=== PATIENT | male | born 1950 | race Caucasian/White ===

== ENCOUNTER 2017-07-30 23:22 | Emergency (ER) | payer MEDICARE ==
--- NOTE | 2017-07-30 23:54 | EDM.PDOC ---
ED HPI GENERAL MEDICAL PROBLEM - General Chief Complaint: General Stated Complaint: LUMP IN CHEST FEELING [id number] Time Seen by Provider: 07/30/17 23:30 Source of Information: Reports: Patient, Family History Limitations: Reports: No Limitations - History of Present Illness INITIAL COMMENTS - FREE TEXT/NARRATIVE: ED ambulatory with c/o lump in chest similar if something caught after eating. Noted prior to eating supper. Worse when lying flat. Has had recent URI, breathing heavier tonight. Fever today. notes not belching tonight. Prior hx kdney and bladder cancer, Undergoing BCG treatments, next due tomorrow, # treatments remaining. Prior hx blood clots after prostate surgery. Has had 2 episodes of atrial fibrillation associated with illness. Spontaneous conversion. Emesis x 1 tonight. Onset: Today, Sudden (5pm) Location: Reports: Chest Treatments ASSOCIATE EDITOR: Reports: Other (see below) Other Treatments ASSOCIATE EDITOR: nebulizer treatment Epigastric Pain Score (Numeric/FACES): 2 - Related Data Allergies Allergy/AdvReac Type Severity Reaction Status Date / Time Yqckyat-Jdv-Kon Reductase Allergy Muscle Verified 07/30/17 23:26 Inhibitor Aches colchicine Allergy Cannot Uncoded 07/30/17 23:26 Remember Home Meds: Home Meds Albuterol/Ipratropium [Combivent] 14.7 gm INH Q8HR PRN 06/28/14 [History] Allopurinol [Allopurinol] 300 mg PO DAILY 06/28/14 [History] Lisinopril [Prinivil] 10 mg PO DAILY 06/28/14 [History] atorvaSTATin [Lipitor] 10 mg PO BEDTIME 06/28/14 [History] Albuterol/Ipratropium [DuoNeb 3-0.5 MG/3 ML] 3 ml INH ASDIRECTED PRN 07/19/14 [ History] Hydrochlorothiazide [Hydrochlorothiazide] 25 mg PO DAILY 10/11/15 [History] metFORMIN [Glucophage] 750 mg PO BID 10/11/15 [History] Furosemide [Lasix] 40 mg PO DAILY 10/28/15 [History] Metoprolol Tartrate 100 mg PO BID 10/28/15 [History] Nitrofurantoin Macrocrystal [Nitrofurantoin] 100 mg PO BID 07/30/17 [History] Past Medical History HEENT History: Reports: Impaired Vision Other HEENT History: tonsillectomy and polops removed from nares bilterally Cardiovascular History: Reports: Arrhythmia, Blood Clots/VTE/DVT, High Cholesterol, Hypertension Respiratory History: Reports: Bronchitis, Recurrent, Pneumonia, Recurrent, Other (See Below) Other Respiratory History: uses home nebulizer prn Gastrointestinal History: Reports: Hemorrhoids Genitourinary History: Reports: Prostate Disorder, Renal Calculus, Other (See Below) Other Genitourinary History: self caths self every other day due previous surgeries Musculoskeletal History: Reports: Gout Neurological History: Reports: None Endocrine/Metabolic History: Reports: Diabetes, Type II, Obesity/BMI 30+ Oncologic (Cancer) History: Reports: Other (See Below) Other Oncologic History: bladder cancer - Infectious Disease History Infectious Disease History: Reports: Chicken Pox, Measles - Past Surgical History Male Surgical History: Reports: Lithotripsy (ESWL), TURP-Transurethral Resection of Prostate Neurological Surgical History: Reports: None Musculoskeletal Surgical History: Reports: None Social & Family History - Family History Cardiac: Reports: Hypertension, [place], Stent, Other (See Below) Other Cardiac Family History: sister had cabg Respiratory: Reports: COPD Neurological: Reports: CVA Endocrine/Metabolic: Reports: Diabetes, type II Oncologic: Reports: Lung Other Oncologic Family History: sister had lung ca - Tobacco Use Smoking Status *Q: Never Smoker Second Hand Smoke Exposure: No - Caffeine Use Caffeine Use: Reports: None - Alcohol Use Days Per Week of Alcohol Use: 0 (rare) - Recreational Drug Use Recreational Drug Use: No Drug Use in Last 12 Months: No - Living Situation & Occupation Living situation: Reports: , with Family Occupation: Retired ED ROS GENERAL - Review of Systems Review Of Systems: See Below Constitutional: Reports: Fever HEENT: Reports: No Symptoms Respiratory: Reports: Shortness of Breath, Wheezing Cardiovascular: Reports: Orthopnea, Other ("lump in chest") GI/Abdominal: Reports: Difficulty Swallowing (when eats to fast), Vomiting : Reports: Other (bladder cancer) Skin: Reports: No Symptoms Neurological: Reports: No Symptoms ED EXAM, GENERAL - Physical Exam Exam: See Below Exam Limited By: No Limitations General Appearance: Alert, Obese Eye Exam: Bilateral Eye: EOMI Ears: Normal External Exam, Normal TMs Nose: Normal Inspection Throat/Mouth: Normal Inspection Head: Atraumatic, Normocephalic Neck: Normal Inspection Respiratory/Chest: Decreased Breath Sounds. No: Rhonchi, Wheezing Cardiovascular: Normal Peripheral Pulses, Regular Rate, Rhythm GI/Abdominal: Normal Bowel Sounds, Soft, Other (round) Extremities: Normal Inspection Neurological: Alert, Oriented, Normal Cognition Skin Exam: Warm, Dry, Intact, Other (face flushed) Course - Vital Signs Last Recorded V/S: Last Vital Signs Temp 98.2 F 07/31/17 02:12 Pulse 78 07/31/17 01:25 Resp 22 H 07/31/17 02:12 BP 145/77 H 07/31/17 02:12 Pulse Ox 98 07/31/17 02:12 - Orders/Labs/Meds Labs: Laboratory Tests 07/30/17 07/30/17 07/30/17 Range/Units 23:40 23:45 23:45 WBC 12.7 H (5.0-10.0) 10^3/uL RBC 4.99 (4.6-6.2) 10^6/uL Hgb 15.6 (14.0-18.0) g/dL Hct 44.3 (40.0-54.0) % MCV 88.8 D (80-100) fL MCH 31.3 (27.0-34.0) pg MCHC 35.2 H (33.0-35.0) g/dL Plt Count 174 (150-450) 10^3/uL Neut % (Auto) 74.1 (42.2-75.2) % Lymph % (Auto) 14.4 L (20.5-50.1) % [place] % (Auto) 10.2 H (2-8) % Eos % (Auto) 0.9 L (1.0-3.0) % Baso % (Auto) 0.4 (0.0-1.0) % Add Manual Diff Yes Neutrophils % (Manual) 73 (42-75) % Lymphocytes % (Manual) 14 L (20-50) % Monocytes % (Manual) 12 H (2-8) % Eosinophils % (Manual) 1 (1-3) % PT (9.0-12.0) SEC INR (0.9-1.2) D-Dimer, Quantitative 1340 H (0-400) ng/mL Sodium (135-145) mmol/L Potassium (3.6-5.0) mmol/L Chloride (101-111) mmol/L Carbon Dioxide (21.0-31.0) mmol/L Anion Gap BUN (7-18) mg/dL Creatinine (0.6-1.3) mg/dL Est Cr Clr Drug Dosing Estimated GFR (MDRD) BUN/Creatinine Ratio Glucose (74-105) mg/dL Lactic Acid 2.1 (0.5-2.2) mmol/L Calcium (8.4-10.2) mg/dl Total Bilirubin (0.2-1.0) mg/dL AST (10-42) IU/L ALT (10-60) IU/L Alkaline Phosphatase (42-121) IU/L Creatine Kinase (26-174) IU/L Creatine Kinase Index (0-2.4) % CK-MB (CK-2) (0.4-4.7) ng/mL Troponin I (0.00-0.02) ng/ml B-Natriuretic Peptide (0-100) pg/ml Total Protein (6.7-8.2) g/dl Albumin (3.2-5.5) g/dl Globulin Albumin/Globulin Ratio Amylase (28-100) U/L Lipase (22-51) U/L Urine Color (YELLOW) Urine Appearance (CLEAR) Urine pH (5.0-9.0) Ur Specific [place] (1.005-1.030) Urine Protein (NEGATIVE) Urine Glucose (UA) (NEGATIVE) Urine Ketones (NEGATIVE) Urine Occult Blood (NEGATIVE) Urine Nitrite (NEGATIVE) Urine Bilirubin (NEGATIVE) Urine Urobilinogen (0.2-1.0) mg/dL Ur Leukocyte Esterase (NEGATIVE) Urine RBC /HPF Urine WBC (0-5/HPF) /HPF Ur Epithelial Cells /HPF Urine Bacteria (0-FEW/HPF) /HPF Urine Mucus /LPF 07/30/17 07/30/17 07/30/17 Range/Units 23:45 23:45 23:45 WBC (5.0-10.0) 10^3/uL RBC (4.6-6.2) 10^6/uL Hgb (14.0-18.0) g/dL Hct (40.0-54.0) % MCV (80-100) fL MCH (27.0-34.0) pg MCHC (33.0-35.0) g/dL Plt Count (150-450) 10^3/uL Neut % (Auto) (42.2-75.2) % Lymph % (Auto) (20.5-50.1) % [place] % (Auto) (2-8) % Eos % (Auto) (1.0-3.0) % Baso % (Auto) (0.0-1.0) % Add Manual Diff Neutrophils % (Manual) (42-75) % Lymphocytes % (Manual) (20-50) % Monocytes % (Manual) (2-8) % Eosinophils % (Manual) (1-3) % PT 11.2 (9.0-12.0) SEC INR 1.1 (0.9-1.2) D-Dimer, Quantitative (0-400) ng/mL Sodium 137 (135-145) mmol/L Potassium 4.0 (3.6-5.0) mmol/L Chloride 97 L (101-111) mmol/L Carbon Dioxide 29.0 (21.0-31.0) mmol/L Anion Gap 15.0 BUN 18 (7-18) mg/dL Creatinine 1.1 (0.6-1.3) mg/dL Est Cr Clr Drug Dosing TNP Estimated GFR (MDRD) > 60 BUN/Creatinine Ratio 16.36 Glucose 157 H (74-105) mg/dL Lactic Acid (0.5-2.2) mmol/L Calcium 9.7 (8.4-10.2) mg/dl Total Bilirubin 0.8 (0.2-1.0) mg/dL AST 29 (10-42) IU/L ALT 26 (10-60) IU/L Alkaline Phosphatase 58 (42-121) IU/L Creatine Kinase 102 (26-174) IU/L Creatine Kinase Index 2.7 H (0-2.4) % CK-MB (CK-2) 2.80 (0.4-4.7) ng/mL Troponin I < 0.02 (0.00-0.02) ng/ml B-Natriuretic Peptide (0-100) pg/ml Total Protein 7.1 (6.7-8.2) g/dl Albumin 3.9 (3.2-5.5) g/dl Globulin 3.2 Albumin/Globulin Ratio 1.22 Amylase (28-100) U/L Lipase (22-51) U/L Urine Color (YELLOW) Urine Appearance (CLEAR) Urine pH (5.0-9.0) Ur Specific [place] (1.005-1.030) Urine Protein (NEGATIVE) Urine Glucose (UA) (NEGATIVE) Urine Ketones (NEGATIVE) Urine Occult Blood (NEGATIVE) Urine Nitrite (NEGATIVE) Urine Bilirubin (NEGATIVE) Urine Urobilinogen (0.2-1.0) mg/dL Ur Leukocyte Esterase (NEGATIVE) Urine RBC /HPF Urine WBC (0-5/HPF) /HPF Ur Epithelial Cells /HPF Urine Bacteria (0-FEW/HPF) /HPF Urine Mucus /LPF 07/30/17 07/30/17 07/31/17 Range/Units 23:45 23:45 01:05 WBC (5.0-10.0) 10^3/uL RBC (4.6-6.2) 10^6/uL Hgb (14.0-18.0) g/dL Hct (40.0-54.0) % MCV (80-100) fL MCH (27.0-34.0) pg MCHC (33.0-35.0) g/dL Plt Count (150-450) 10^3/uL Neut % (Auto) (42.2-75.2) % Lymph % (Auto) (20.5-50.1) % [place] % (Auto) (2-8) % Eos % (Auto) (1.0-3.0) % Baso % (Auto) (0.0-1.0) % Add Manual Diff Neutrophils % (Manual) (42-75) % Lymphocytes % (Manual) (20-50) % Monocytes % (Manual) (2-8) % Eosinophils % (Manual) (1-3) % PT (9.0-12.0) SEC INR (0.9-1.2) D-Dimer, Quantitative (0-400) ng/mL Sodium (135-145) mmol/L Potassium (3.6-5.0) mmol/L Chloride (101-111) mmol/L Carbon Dioxide (21.0-31.0) mmol/L Anion Gap BUN (7-18) mg/dL Creatinine (0.6-1.3) mg/dL Est Cr Clr Drug Dosing Estimated GFR (MDRD) BUN/Creatinine Ratio Glucose (74-105) mg/dL Lactic Acid (0.5-2.2) mmol/L Calcium (8.4-10.2) mg/dl Total Bilirubin (0.2-1.0) mg/dL AST (10-42) IU/L ALT (10-60) IU/L Alkaline Phosphatase (42-121) IU/L Creatine Kinase (26-174) IU/L Creatine Kinase Index (0-2.4) % CK-MB (CK-2) (0.4-4.7) ng/mL Troponin I (0.00-0.02) ng/ml B-Natriuretic Peptide 47 (0-100) pg/ml Total Protein (6.7-8.2) g/dl Albumin (3.2-5.5) g/dl Globulin Albumin/Globulin Ratio Amylase 30 (28-100) U/L Lipase 44 (22-51) U/L Urine Color Yellow (YELLOW) Urine Appearance Slightly cloudy (CLEAR) Urine pH 6.0 (5.0-9.0) Ur Specific [place] 1.020 (1.005-1.030) Urine Protein 30 H (NEGATIVE) Urine Glucose (UA) Negative (NEGATIVE) Urine Ketones Negative (NEGATIVE) Urine Occult Blood Trace-intact H (NEGATIVE) Urine Nitrite Negative (NEGATIVE) Urine Bilirubin Negative (NEGATIVE) Urine Urobilinogen 0.2 (0.2-1.0) mg/dL Ur Leukocyte Esterase Trace H (NEGATIVE) Urine RBC 0-5 /HPF Urine WBC 50-75 H (0-5/HPF) /HPF Ur Epithelial Cells Few /HPF Urine Bacteria Few (0-FEW/HPF) /HPF Urine Mucus Few H /LPF Meds: Medications Discontinued Medications Generic Name Dose Route Start Last Admin Trade Name Freq PRN Reason Stop Dose Admin Al Hydroxide/Mg Hydroxide 30 ml 07/31/17 01:12 07/31/17 01:21 Gi Cocktail PO 07/31/17 01:13 30 ml ONETIME ONE Administration Albuterol 2.5 mg 07/31/17 02:01 07/31/17 02:06 Proventil Neb Soln NEB 07/31/17 02:02 2.5 mg ONETIME ONE Administration Iopamidol 100 ml 07/31/17 01:22 07/31/17 01:23 Isovue-370 (76%) IVPUSH 07/31/17 01:23 80 ml ONETIME ONE Administration Nitroglycerin 0.4 mg 07/31/17 00:00 07/31/17 00:04 Nitrostat SL 07/31/17 00:01 0.4 mg ONETIME ONE Administration - Radiology Interpretation Free Text/Narrative:: CXR: Low lung volume, Right lower lobe atelectasis. No pneumo or free air. Departure - Departure Time of Disposition: 02:00 Disposition: Home, Self-Care 01 Condition: Fair Clinical Impression: Chest fullness Bladder cancer Qualifiers: Bladder location: unspecified site Qualified Code(s): C67.9 - Malignant neoplasm of bladder, unspecified - Discharge Information Forms: ED Department Discharge
[2017-07-31] MEDS ORDERED: Nitroglycerin 0.4 MG Tab.SL SL ONE
[2017-07-31 00:11] LABS: CHLORIDE,CL 97 mmol/L (101-111); SODIUM,NA 137 mmol/L (135-145)
[2017-07-31] MEDS ORDERED: GI Cocktail Oral Solution 30 ML PO ONE (01:12)
[2017-07-31] MEDS ORDERED: Iopamidol 755 Mg/ML 100 ML Bottle IVPUSH ONE (01:22)
[2017-07-31] MEDS ORDERED: Albuterol 0.083% 2.5 MG/3 ML Neb Soln NEB ONE (02:01)
[2017-07-31 02:13] VITALS: BP 145/77
--- NOTE | 2017-08-01 08:37 | EKG ---
07/30/2017- JIM DUVAL - EKG per my reading shows sinus rhythm at the rate of 79. No acute ST changes. MODL /[id number]
== END 2017-07-31 02:26 | disposition home or self-care (01) ==
LOC: DL.ED 23:22
DX: J98.11 Atelectasis (principal); C67.9 Malignant neoplasm of bladder, unspecified; E78.00 Pure hypercholesterolemia, unspecified; I10 Essential (primary) hypertension; E11.9 Type 2 diabetes mellitus without complications; R06.2 Wheezing; R06.02 Shortness of breath; E66.9 Obesity, unspecified; Z88.8 Allergy status to other drugs, medicaments and biological substances; Z87.01 Personal history of pneumonia (recurrent); Z79.899 Other long term (current) drug therapy
CPT/HCPCS: 36415; 71010; 71260; 80053; 81001; 82150; 82550; 82553; 83605; 83690; 83880; 84484; 85025; 85379; 85610; 87040; 93005; 93010; 99285; A9270; J7620; Q9967; 99284

== ENCOUNTER 2018-07-21 23:54 | Emergency (ER) | payer MEDICARE ==
[2018-07-22] MEDS ORDERED: Ondansetron 4 MG/2 ML SDV IV ONE (00:08)
[2018-07-22] MEDS ORDERED: Sodium Chloride 0.9% 1,000 ML IV ONE ×2 (00:08→01:00)
[2018-07-22 00:28] VITALS: BP 131/81
[2018-07-22] MEDS ORDERED: Ibuprofen 800 MG Tab PO ONE (00:43)
--- NOTE | 2018-07-22 00:48 | EDM.PDOC ---
ED HPI GENERAL MEDICAL PROBLEM - General Chief Complaint: Gastrointestinal Problem Stated Complaint: AMBULANCE-THROWING UP Time Seen by Provider: 07/22/18 00:00 Source of Information: Reports: Patient, EMS, EMS Notes Reviewed, Family, RN, RN Notes Reviewed History Limitations: Reports: No Limitations - History of Present Illness INITIAL COMMENTS - FREE TEXT/NARRATIVE: Pt to Er per [facility] with c/o N/V and fever. States he had a port placed this morning in [place]. Patient has history of prostate and lung cancer. Last took Tylenol at home at 2200. Vomited x3 after trying to drink water. States he has had thrush and a yeast infection in the groin area. Onset: Today Treatments ENERGY ADMINISTRATOR: Reports: Acetaminophen Groin Pain Score (Numeric/FACES): 3 - Related Data Allergies Allergy/AdvReac Type Severity Reaction Status Date / Time Vprlikn-Hpr-Kvw Reductase Allergy Muscle Verified 07/22/18 00:31 Inhibitor Aches colchicine Allergy Cannot Uncoded 07/22/18 00:31 Remember Home Meds: Home Meds Albuterol/Ipratropium [Combivent] 14.7 gm INH Q8HR PRN 06/28/14 [History] Allopurinol 300 mg PO DAILY 06/28/14 [History] Lisinopril [Prinivil] 10 mg PO DAILY 06/28/14 [History] atorvaSTATin [Lipitor] 10 mg PO BEDTIME 06/28/14 [History] Albuterol/Ipratropium [DuoNeb 3-0.5 MG/3 ML] 3 ml INH ASDIRECTED PRN 07/19/14 [ History] Hydrochlorothiazide 25 mg PO DAILY 10/11/15 [History] metFORMIN [Glucophage] 750 mg PO BID 10/11/15 [History] Furosemide [Lasix] 40 mg PO DAILY 10/28/15 [History] Metoprolol Tartrate 100 mg PO BID 10/28/15 [History] Nitrofurantoin Macrocrystal [Nitrofurantoin] 100 mg PO BID 07/30/17 [History] Acetaminophen [Tylenol] 325 mg PO Q6H PRN 07/22/18 [History] Albuterol [Proventil Neb Soln] 2.5 mg .XX QID 07/22/18 [History] Aspirin [Adult Low Dose Aspirin EC] 81 mg PO DAILY 07/22/18 [History] EPINEPHrine [Auvi-Q] 0.3 mg IJ DAILY PRN 07/22/18 [History] Fluconazole [Diflucan] 200 mg PO DAILY 07/22/18 [History] Insulin Glargine,Hum.Rec.Anlog [Basaglar Kwikpen U-100] 15 unit SQ BEDTIME 07/22 [History] Lidocaine 2% [Xylocaine 2% Jelly] 07/22/18 [History] Lidocaine 2% [Xylocaine 2% Jelly] 0 ml TOP DAILY PRN 07/22/18 [History] Loratadine [Claritin] 10 mg PO DAILY 07/22/18 [History] Montelukast [Singulair] 10 mg PO DAILY PRN 07/22/18 [History] Ondansetron [Zofran ODT] 8 mg PO Q8HR PRN 07/22/18 [History] Pantoprazole Sodium 40 mg PO DAILY 07/22/18 [History] Pyridoxine HCl [Vitamin B-6] 100 mg PO DAILY 07/22/18 [History] Ranitidine [Zantac] 150 mg PO DAILY PRN 07/22/18 [History] dilTIAZem HCl [Diltiazem 24Hr ER] 300 mg PO DAILY 07/22/18 [History] diphenhydrAMINE [Benadryl] 50 mg PO DAILY PRN 07/22/18 [History] glipiZIDE [Glucotrol XL] 10 mg PO BID 07/22/18 [History] predniSONE [Prednisone] 10 mg PO PRN 07/22/18 [History] Past Medical History HEENT History: Reports: Impaired Vision Other HEENT History: tonsillectomy and polops removed from nares bilterally Cardiovascular History: Reports: Arrhythmia, Blood Clots/VTE/DVT, High Cholesterol, Hypertension Respiratory History: Reports: Bronchitis, Recurrent, Pneumonia, Recurrent, Other (See Below) Other Respiratory History: uses home nebulizer prn Gastrointestinal History: Reports: Hemorrhoids Genitourinary History: Reports: Prostate Disorder, Renal Calculus, Other (See Below) Other Genitourinary History: self caths self every other day due previous surgeries Musculoskeletal History: Reports: Gout Neurological History: Reports: None Endocrine/Metabolic History: Reports: Diabetes, Type II, Obesity/BMI 30+ Oncologic (Cancer) History: Reports: Lung, Other (See Below) Other Oncologic History: bladder cancer - Infectious Disease History Infectious Disease History: Reports: Chicken Pox, Measles - Past Surgical History Male Surgical History: Reports: Lithotripsy (ESWL), TURP-Transurethral Resection of Prostate Neurological Surgical History: Reports: None Musculoskeletal Surgical History: Reports: None Social & Family History - Family History Cardiac: Reports: Hypertension, [place], Stent, Other (See Below) Other Cardiac Family History: sister had cabg Respiratory: Reports: COPD Neurological: Reports: CVA Endocrine/Metabolic: Reports: Diabetes, type II Oncologic: Reports: Lung Other Oncologic Family History: sister had lung ca - Tobacco Use Smoking Status *Q: Never Smoker Second Hand Smoke Exposure: No - Caffeine Use Caffeine Use: Reports: Coffee, Tea - Recreational Drug Use Recreational Drug Use: No - Living Situation & Occupation Living situation: Reports: , with Family Occupation: Retired ED ROS GENERAL - Review of Systems Review Of Systems: ROS reveals no pertinent complaints other than HPI. ED EXAM, GENERAL - Physical Exam Exam: See Below Exam Limited By: No Limitations General Appearance: Alert, WD/WN, Mild Distress Eye Exam: Bilateral Eye: EOMI, Normal Inspection Ears: Normal External Exam, Hearing Grossly Normal Nose: Normal Inspection Throat/Mouth: Normal Inspection, Normal Voice, No Airway Compromise, Other (dry mouth) Head: Atraumatic, Normocephalic Neck: Normal Inspection, Supple, Non-Tender, Full Range of Motion Respiratory/Chest: No Respiratory Distress, Lungs Clear, Normal Breath Sounds, No Accessory Muscle Use, Chest Non-Tender Cardiovascular: No Edema, No Gallop, No JVD, No Murmur, No Rub, Tachycardia, Irregularly Irregular Peripheral Pulses: 2+: Radial (L), Radial (R) GI/Abdominal: Normal Bowel Sounds, Soft, Non-Tender (Male) Exam: Deferred Rectal (Males) Exam: Deferred Back Exam: Normal Inspection, Decreased Range of Motion Extremities: Normal Inspection, Limited Range of Motion, Other (weakness) Neurological: Alert, Oriented, Normal Cognition Psychiatric: Normal Affect, Normal Mood Skin Exam: Warm, Dry, Intact, Normal Color, Rash (erythematous, yeasty rash around the groin.) Lymphatic: No Adenopathy Course - Vital Signs Last Recorded V/S: Last Vital Signs Temp 101.2 F H 07/22/18 01:19 Pulse Resp 24 H 07/22/18 00:00 BP 131/81 07/22/18 00:00 Pulse Ox 100 07/22/18 00:00 - Orders/Labs/Meds Orders: Active Orders 24 hr Category Date Time Status Implanted Port Access [RC] QSHIFT Care 07/22/18 00:02 Active Chest 1V Frontal [CR] Stat Exams 07/22/18 00:01 Taken CULTURE BLOOD [BC] Stat Lab 07/22/18 00:05 Received CULTURE BLOOD [BC] Stat Lab 07/22/18 00:15 Received UA W/MICROSCOPIC [URIN] Stat Lab 07/22/18 00:01 Ordered Blood Culture x2 Reflex Set [OM.PC] Stat Oth 07/22/18 00:08 Ordered Labs: Laboratory Tests 07/22/18 07/22/18 07/22/18 Range/Units 00:15 00:15 00:15 WBC 3.0 L (5.0-10.0) 10^3/uL RBC 3.84 L (4.6-6.2) 10^6/uL Hgb 9.9 L D (14.0-18.0) g/dL Hct 29.3 L (40.0-54.0) % MCV 76.3 L D (80-100) fL MCH 25.8 L (27.0-34.0) pg MCHC 33.8 (33.0-35.0) g/dL Plt Count 165 (150-450) 10^3/uL Neut % (Auto) 74.1 (42.2-75.2) % Lymph % (Auto) 16.3 L (20.5-50.1) % [place] % (Auto) 9.3 H (2-8) % Eos % (Auto) 0.0 L (1.0-3.0) % Baso % (Auto) 0.3 (0.0-1.0) % Add Manual Diff Yes Neutrophils % (Manual) 65 (42-75) % Lymphocytes % (Manual) 19 L (20-50) % Monocytes % (Manual) 16 H (2-8) % Sodium 125 L D (135-145) mmol/L Potassium 4.0 (3.6-5.0) mmol/L Chloride 91 L (101-111) mmol/L Carbon Dioxide 20.0 L (21.0-31.0) mmol/L Anion Gap 18.0 BUN 18 (7-18) mg/dL Creatinine 1.2 (0.6-1.3) mg/dL Est Cr Clr Drug Dosing 47.96 mL/min Estimated GFR (MDRD) 60 BUN/Creatinine Ratio 15.00 Glucose 200 H (74-105) mg/dL Lactic Acid 2.9 H (0.5-2.2) mmol/L Calcium 8.8 (8.4-10.2) mg/dl Total Bilirubin 1.2 H (0.2-1.0) mg/dL AST 43 H (10-42) IU/L ALT 48 (10-60) IU/L Alkaline Phosphatase 99 (42-121) IU/L Total Protein 6.8 (6.7-8.2) g/dl Albumin 3.1 L (3.2-5.5) g/dl Globulin 3.7 Albumin/Globulin Ratio 0.84 Meds: Medications Discontinued Medications Generic Name Dose Route Start Last Admin Trade Name Freq PRN Reason Stop Dose Admin Sodium Chloride 1,000 mls @ 999 mls/hr 07/22/18 00:08 07/22/18 00:16 Normal Saline IV 07/22/18 01:08 999 mls/hr .BOLUS ONE Administration Piperacillin Sod/Tazobactam 100 mls @ 200 mls/hr 07/22/18 00:58 07/22/18 01: 12 Sod 3.375 gm/ Sodium Chloride IV 07/22/18 01:27 200 mls/hr ONETIME ONE Administration Sodium Chloride 1,000 mls @ 999 mls/hr 07/22/18 01:00 07/22/18 01:28 Normal Saline IV 07/22/18 02:00 Not Given .BOLUS ONE Ibuprofen 800 mg 07/22/18 00:43 07/22/18 01:06 Motrin PO 07/22/18 00:44 Not Given ONETIME ONE Ibuprofen 800 mg 07/22/18 01:01 07/22/18 01:07 Motrin PO 07/22/18 01:02 800 mg ONETIME ONE Administration Ondansetron HCl 4 mg 07/22/18 00:08 07/22/18 00:16 Zofran IV 07/22/18 00:09 4 mg ONETIME ONE Administration - Radiology Interpretation Free Text/Narrative:: chest xray: IMPRESSION: There are multiple bilateral pulmonary nodules consistent with pulmonary metastatic lesions. These appear new since prior study dated 07/30/2017 Thank you for allowing us to participate in the care of your patient. Dictated and Authenticated by: Juan Hunter MD 07/22/2018 12:38 AM Central Time ([place] & [place]) See rad report - Re-Assessments/Exams Free Text/Narrative Re-Assessment/Exam: 07/22/18 01:33 Discussed patient care with Dr. Jeong who agreed to accept the patient. Departure - Departure Time of Disposition: 01:32 Disposition: DC/Tfer to [facility] 02 Condition: Fair, Serious Clinical Impression: Sepsis Qualifiers: Sepsis type: sepsis due to unspecified organism Qualified Code(s): A41.9 - Sepsis, unspecified organism - Discharge Information *PRESCRIPTION DRUG MONITORING PROGRAM REVIEWED*: No *COPY OF PRESCRIPTION DRUG MONITORING REPORT IN PATIENT DON: No Referrals: PCP,Unobtain [Primary Care Provider] - Forms: ED Department Discharge, Interfacility Transfer EMTALA - My Orders Last 24 Hours: My Active Orders 07/22/18 00:01 Chest 1V Frontal [CR] Stat UA W/MICROSCOPIC [URIN] Stat 07/22/18 00:02 Implanted Port Access [RC] QSHIFT 07/22/18 00:05 CULTURE BLOOD [BC] Stat 07/22/18 00:08 Blood Culture x2 Reflex Set [OM.PC] Stat 07/22/18 00:15 CULTURE BLOOD [BC] Stat - Assessment/Plan Last 24 Hours: My Active Orders 07/22/18 00:01 Chest 1V Frontal [CR] Stat UA W/MICROSCOPIC [URIN] Stat 07/22/18 00:02 Implanted Port Access [RC] QSHIFT 07/22/18 00:05 CULTURE BLOOD [BC] Stat 07/22/18 00:08 Blood Culture x2 Reflex Set [OM.PC] Stat 07/22/18 00:15 CULTURE BLOOD [BC] Stat
[2018-07-22] MEDS ORDERED: Piperacillin/Tazobactam 3.375 GM in Sodium Chloride 0.9% 100 ML IV ONE (00:58)
[2018-07-22] MEDS ORDERED: Ibuprofen 400 MG Tab PO ONE (01:01)
== END 2018-07-22 01:28 ==
LOC: DL.ED 23:54
DX: A41.9 Sepsis, unspecified organism (principal); E11.9 Type 2 diabetes mellitus without complications; E78.00 Pure hypercholesterolemia, unspecified; I10 Essential (primary) hypertension; Z79.84 Long term (current) use of oral hypoglycemic drugs; Z79.82 Long term (current) use of aspirin; Z79.899 Other long term (current) drug therapy; Z88.8 Allergy status to other drugs, medicaments and biological substances
CPT/HCPCS: 36415; 71045; 80053; 83605; 85025; 87040; 96361; 96374; 96375; 99284; 99285; A9270-GY; J2405; J2543; J7030; J7050

== ENCOUNTER 2019-02-05 20:15 | Inpatient (IN) | payer MEDICARE ==
[2019-02-05] MEDS ORDERED: Sodium Chloride 0.9% 1,000 ML IV ONE ×2 (20:39→22:23)
[2019-02-05 21:37] LABS: ANION GAP 19.2
[2019-02-05] MEDS: Sodium Chloride 0.9% 1,000 ML IV STA ×2 (22:23→22:25)
[2019-02-05] MEDS ORDERED: Acetaminophen 325 MG Tab PO ONE ×2 (22:23)
[2019-02-05] MEDS ORDERED: predniSONE 20 MG Tab PO ONE (23:09)
[2019-02-05] MEDS ORDERED: diphenhydrAMINE 50 MG/ML SDV IVPUSH ONE (23:10)
[2019-02-05] MEDS ORDERED: Famotidine 20 MG/2 ML SDV IVPUSH ONE (23:10)
[2019-02-05] MEDS ORDERED: Montelukast 10 MG Tab PO ONE (23:12)
[2019-02-06] MEDS ORDERED: Morphine 2 MG/ML Syringe IVPUSH ONE ×2 (01:02→11:14)
[2019-02-06] MEDS ORDERED: Sodium Chloride 0.9% 1,000 ML IV ONE (06:03)
--- NOTE | 2019-02-06 06:03 | EDM.PDOC ---
ED HPI GENERAL MEDICAL PROBLEM - General Chief Complaint: Abdominal Pain Stated Complaint: AMBULANCE Time Seen by Provider: 02/05/19 20:30 Source of Information: Reports: Patient, EMS, EMS Notes Reviewed, Family, RN, RN Notes Reviewed History Limitations: Reports: No Limitations - History of Present Illness INITIAL COMMENTS - FREE TEXT/NARRATIVE: Pt to ER per [facility] with c/o abdominal discomfort and nausea. Patient family states hx of kidney and lung cancer with mets to bone. Last had chemo 3 weeks ago. Last week had 5 days of radiation. Had some problems with constipation last week, increased senekot and has recently had some loose stools. Patient has not been getting up and around as much as he usually does, using a wheelchair more. Appetite has been decreased. Family and patient state abdomen is more distended than usual and hard. Admits to low grade temp every night. Admits to nausea with one episode of vomiting mucous like product today. Onset: Gradual Duration: Constant, Getting Worse Location: Reports: Abdomen Abdominal Pain Score (Numeric/FACES): 5 - Related Data Allergies Allergy/AdvReac Type Severity Reaction Status Date / Time allopurinol Allergy Rash Verified 02/05/19 20:26 amoxicillin [From Augmentin] Allergy Rash Verified 02/05/19 20:26 clavulanic acid Allergy Rash Verified 02/05/19 20:26 [From Augmentin] levofloxacin Allergy Rash Verified 02/05/19 20:26 nitrofurantoin Allergy Facial Verified 02/05/19 20:26 [From Macrobid] Swelling Cnixslp-[id number]-Uou Reductase Allergy Muscle Verified 02/05/19 20:26 Inhibitor Aches colchicine Allergy Cannot Uncoded 02/05/19 20:26 Remember iodinated diagnostic agents Allergy Facial Uncoded 02/05/19 20:26 Swelling Home Meds: Home Meds Albuterol/Ipratropium [DuoNeb 3-0.5 MG/3 ML] 3 ml INH ASDIRECTED PRN 07/19/14 [ History] Hydrochlorothiazide 25 mg PO DAILY 10/11/15 [History] metFORMIN [Glucophage] 750 mg PO BID 10/11/15 [History] Acetaminophen [Tylenol] 325 mg PO Q6H PRN 07/22/18 [History] Aspirin [Adult Low Dose Aspirin EC] 81 mg PO DAILY 07/22/18 [History] Fluconazole [Diflucan] 200 mg PO DAILY 07/22/18 [History] Loratadine [Claritin] 10 mg PO DAILY 07/22/18 [History] Montelukast [Singulair] 10 mg PO DAILY PRN 07/22/18 [History] Ondansetron [Zofran ODT] 8 mg PO Q8HR PRN 07/22/18 [History] Pantoprazole Sodium 40 mg PO BID 07/22/18 [History] Pyridoxine HCl [Vitamin B-6] 100 mg PO DAILY 07/22/18 [History] dilTIAZem HCl [Diltiazem 24Hr ER] 360 mg PO DAILY 07/22/18 [History] Cyclobenzaprine [Flexeril] 5 mg PO ASDIRECTED PRN 02/05/19 [History] Mag Oxide/D3/Turmeric Rt Xt [Magnesium-Vit D3-Turmeric Cap] 4 cap PO DAILY 02/05 [History] Morphine [MS Contin] 45 mg PO BID PRN 02/05/19 [History] Nystatin [Mycostatin] 5 ml PO DAILY 02/05/19 [History] Polyethylene Glycol 3350 [MiraLAX] 1 pack PO DAILY 02/05/19 [History] Sennosides/Docusate Sodium [Senna Plus Tablet] 4 tab PO BID 02/05/19 [History] oxyCODONE 5 mg PO ASDIRECTED 02/05/19 [History] Past Medical History HEENT History: Reports: Impaired Vision Other HEENT History: tonsillectomy and polops removed from nares bilterally Cardiovascular History: Reports: Arrhythmia, Blood Clots/VTE/DVT, High Cholesterol, Hypertension Respiratory History: Reports: Bronchitis, Recurrent, Pneumonia, Recurrent, Other (See Below) Other Respiratory History: uses home nebulizer prn Gastrointestinal History: Reports: Chronic Constipation, GERD, Hemorrhoids Genitourinary History: Reports: Prostate Disorder, Renal Calculus, UTI, Recurrent, Other (See Below) Other Genitourinary History: self caths self every 4th day due previous surgeries Musculoskeletal History: Reports: Gout Neurological History: Reports: None, Neuropathy, Peripheral Endocrine/Metabolic History: Reports: Diabetes, Type II, Obesity/BMI 30+ Oncologic (Cancer) History: Reports: Lung, Metastatic, Renal, Other (See Below) Other Oncologic History: bladder cancer - Infectious Disease History Infectious Disease History: Reports: Chicken Pox, Measles - Past Surgical History Male Surgical History: Reports: Lithotripsy ([facility]), TURP-Transurethral Resection of Prostate Neurological Surgical History: Reports: None Musculoskeletal Surgical History: Reports: None Social & Family History - Family History Family Medical History: Noncontributory Cardiac: Reports: Hypertension, [place], Stent, Other (See Below) Other Cardiac Family History: sister had cabg Respiratory: Reports: COPD Neurological: Reports: CVA Endocrine/Metabolic: Reports: Diabetes, type II Oncologic: Reports: Lung Other Oncologic Family History: sister had lung ca - Tobacco Use Smoking Status *Q: Never Smoker Second Hand Smoke Exposure: No - Caffeine Use Caffeine Use: Reports: None - Recreational Drug Use Recreational Drug Use: No - Living Situation & Occupation Living situation: Reports: , with Family Occupation: Retired ED ROS GENERAL - Review of Systems Review Of Systems: ROS reveals no pertinent complaints other than HPI. ED EXAM, GI/ABD - Physical Exam Exam: See Below Exam Limited By: No Limitations General Appearance: Alert, WD/WN, Mild Distress Eyes: Bilateral: Normal Appearance, EOMI Ears: Normal External Exam, Hearing Grossly Normal Nose: Normal Inspection Throat/Mouth: Normal Inspection, Normal Voice, No Airway Compromise Head: Atraumatic, Normocephalic Neck: Normal Inspection, Supple, Non-Tender, Full Range of Motion Respiratory/Chest: No Respiratory Distress, Decreased Breath Sounds Cardiovascular: Normal Peripheral Pulses, Regular Rate, Rhythm, No Edema, No Gallop, No JVD, No Murmur, No Rub GI/Abdominal Exam: Distended, Rigid, Tender, Abnormal Bowel Sounds (high pitched tinkling, hyperresonnance) (Male) Exam: Deferred Rectal (Males) Exam: Deferred Back Exam: Normal Inspection, Decreased Range of Motion Extremities: Normal Inspection, Leg Pain (right hip pain), Limited Range of Motion Neurological: Alert, Oriented, CN II-XII Intact, Normal Cognition Psychiatric: Normal Affect, Normal Mood Skin Exam: Warm, Dry, Intact, Normal Color, No Rash Lymphatic: No Adenopathy Course - Vital Signs Last Recorded V/S: Last Vital Signs Temp 99.6 F 02/06/19 06:19 Pulse 82 02/06/19 06:19 Resp 16 02/06/19 06:19 BP 133/65 02/06/19 06:19 Pulse Ox 96 02/06/19 06:19 - Orders/Labs/Meds Orders: Active Orders 24 hr Category Date Time Status Implanted Port Access [RC] DAILY Care 02/05/19 20:38 Active CULTURE BLOOD [BC] Stat Lab 02/05/19 21:00 Received Blood Culture x2 Reflex Set [OM.PC] Stat Oth 02/05/19 20:38 Ordered NG [Nasogastric Orogastric Tube Insertion] [OM.PC] Oth 02/05/19 23:13 Ordered Routine Labs: Laboratory Tests 02/05/19 02/05/19 02/05/19 Range/Units 21:00 21:00 21:00 WBC 14.8 H (5.0-10.0) 10^3/uL RBC 2.94 L (4.6-6.2) 10^6/uL Hgb 9.4 L (14.0-18.0) g/dL Hct 27.7 L (40.0-54.0) % MCV 94.2 D (80-100) fL MCH 32.0 (27.0-34.0) pg MCHC 33.9 (33.0-35.0) g/dL Plt Count 250 D (150-450) 10^3/uL Neut % (Auto) 81.0 H (42.2-75.2) % Lymph % (Auto) 2.6 L (20.5-50.1) % Roberts % (Auto) 16.1 H (2-8) % Eos % (Auto) 0.2 L (1.0-3.0) % Baso % (Auto) 0.1 (0.0-1.0) % Sodium 121 L (135-145) mmol/L Potassium 4.2 (3.6-5.0) mmol/L Chloride 84 L (101-111) mmol/L Carbon Dioxide 22.0 (21.0-31.0) mmol/L Anion Gap 19.2 BUN 21 H (7-18) mg/dL Creatinine 1.3 (0.6-1.3) mg/dL Est Cr Clr Drug Dosing 45.99 mL/min Estimated GFR (MDRD) 55 BUN/Creatinine Ratio 16.15 Glucose 148 H (74-105) mg/dL Lactic Acid 1.5 (0.5-2.2) mmol/L Calcium 8.3 L (8.4-10.2) mg/dl Total Bilirubin 0.7 (0.2-1.0) mg/dL AST 30 (10-42) IU/L ALT 15 (10-60) IU/L Alkaline Phosphatase 83 (42-121) IU/L Total Protein 6.1 L (6.7-8.2) g/dl Albumin 2.9 L (3.2-5.5) g/dl Globulin 3.2 Albumin/Globulin Ratio 0.91 Urine Color (YELLOW) Urine Appearance (CLEAR) Urine pH (5.0-9.0) Ur Specific [place] (1.005-1.030) Urine Protein (NEGATIVE) Urine Glucose (UA) (NEGATIVE) Urine Ketones (NEGATIVE) Urine Occult Blood (NEGATIVE) Urine Nitrite (NEGATIVE) Urine Bilirubin (NEGATIVE) Urine Urobilinogen (0.2-1.0) mg/dL Ur Leukocyte Esterase (NEGATIVE) Urine RBC /HPF Urine WBC (0-5/HPF) /HPF Ur Epithelial Cells /HPF Amorphous Sediment (0/HPF) /HPF Urine Bacteria (0-FEW/HPF) /HPF Urine Mucus /LPF 02/06/19 Range/Units 02:45 WBC (5.0-10.0) 10^3/uL RBC (4.6-6.2) 10^6/uL Hgb (14.0-18.0) g/dL Hct (40.0-54.0) % MCV (80-100) fL MCH (27.0-34.0) pg MCHC (33.0-35.0) g/dL Plt Count (150-450) 10^3/uL Neut % (Auto) (42.2-75.2) % Lymph % (Auto) (20.5-50.1) % Roberts % (Auto) (2-8) % Eos % (Auto) (1.0-3.0) % Baso % (Auto) (0.0-1.0) % Sodium (135-145) mmol/L Potassium (3.6-5.0) mmol/L Chloride (101-111) mmol/L Carbon Dioxide (21.0-31.0) mmol/L Anion Gap BUN (7-18) mg/dL Creatinine (0.6-1.3) mg/dL Est Cr Clr Drug Dosing mL/min Estimated GFR (MDRD) BUN/Creatinine Ratio Glucose (74-105) mg/dL Lactic Acid (0.5-2.2) mmol/L Calcium (8.4-10.2) mg/dl Total Bilirubin (0.2-1.0) mg/dL AST (10-42) IU/L ALT (10-60) IU/L Alkaline Phosphatase (42-121) IU/L Total Protein (6.7-8.2) g/dl Albumin (3.2-5.5) g/dl Globulin Albumin/Globulin Ratio Urine Color Yellow (YELLOW) Urine Appearance Slightly cloudy (CLEAR) Urine pH 5.0 (5.0-9.0) Ur Specific [place] 1.015 (1.005-1.030) Urine Protein 30 H (NEGATIVE) Urine Glucose (UA) Negative (NEGATIVE) Urine Ketones 15 H (NEGATIVE) Urine Occult Blood Moderate H (NEGATIVE) Urine Nitrite Negative (NEGATIVE) Urine Bilirubin Negative (NEGATIVE) Urine Urobilinogen 0.2 (0.2-1.0) mg/dL Ur Leukocyte Esterase Negative (NEGATIVE) Urine RBC 10-20 H /HPF Urine WBC 5-10 H (0-5/HPF) /HPF Ur Epithelial Cells Rare /HPF Amorphous Sediment Rare (0/HPF) /HPF Urine Bacteria Rare (0-FEW/HPF) /HPF Urine Mucus Rare /LPF Meds: Medications Discontinued Medications Generic Name Dose Route Start Last Admin Trade Name Freq PRN Reason Stop Dose Admin Acetaminophen 650 mg 02/05/19 22:23 02/05/19 22:27 Tylenol PO 02/05/19 22:24 650 mg NOW ONE Administration Acetaminophen 650 mg 02/05/19 22:23 02/05/19 22:26 Tylenol PO 02/05/19 22:24 Not Given NOW ONE Diphenhydramine HCl 50 mg 02/05/19 23:10 02/05/19 23:19 Benadryl IVPUSH 02/05/19 23:11 50 mg ONETIME ONE Administration Famotidine 20 mg 02/05/19 23:10 02/05/19 23:21 Pepcid IVPUSH 02/05/19 23:11 20 mg ONETIME ONE Administration Sodium Chloride 1,000 mls @ 999 mls/hr 02/05/19 20:39 02/05/19 21:03 Normal Saline IV 02/05/19 21:39 999 mls/hr .BOLUS ONE Administration Sodium Chloride 1,000 mls @ 125 mls/hr 02/05/19 22:21 02/05/19 22:25 Normal Saline IV 02/06/19 06:20 125 mls/hr NOW STA Administration Sodium Chloride 1,000 mls @ 125 mls/hr 02/05/19 22:23 02/05/19 22:26 Normal Saline IV 02/06/19 06:22 Not Given .BOLUS ONE Sodium Chloride 1,000 mls @ 75 mls/hr 02/06/19 06:03 02/06/19 06:10 Normal Saline IV 02/06/19 19:22 75 mls/hr .BOLUS ONE Administration Montelukast Sodium 10 mg 02/05/19 23:12 02/05/19 23:26 Singulair PO 02/05/19 23:13 10 mg ONETIME ONE Administration Morphine Sulfate 2 mg 02/06/19 01:02 02/06/19 01:06 Morphine IVPUSH 02/06/19 01:03 2 mg ONETIME ONE Administration Prednisone 50 mg 02/05/19 23:09 02/05/19 23:23 Prednisone PO 02/05/19 23:10 50 mg ONETIME ONE Administration - Radiology Interpretation Free Text/Narrative:: Abdomen CT wo contrast: FINDINGS: Tubes, catheters and devices: Catheter tip ends in the SVC. Lower thorax: Numerous bilateral pulmonary masses measuring up to 3 cm. Metastatic disease is suspected. ABDOMEN: Liver: Normal. No mass. Gallbladder and bile ducts: Gallstones without evidence of acute cholecystitis. Pancreas: Normal. No ductal dilation. Spleen: Normal. No splenomegaly. Adrenals: Normal. No mass. Kidneys and ureters: Left renal stones measuring up to 5 mm. Stomach and bowel: Colonic dilation up to 10 cm. No definite obstructive mass identified. Ileus versus small bowel obstruction is not excluded. Appendix: No evidence of appendicitis. PELVIS: Bladder: Wall thickening of the bladder measuring up to 1.3 cm. Malignancy, cystitis or underdistention may cause this appearance. Correlate with urinalysis. Reproductive: Unremarkable as visualized. ABDOMEN and PELVIS: Intraperitoneal space: Small amount of perihepatic ascites. Bones/joints: Osseous metastatic disease. Soft tissues: Unremarkable. Vasculature: Aortic and coronary atherosclerosis. Lymph nodes: Enlarged left para-aortic lymph node measuring 2.3 cm in short axis. IMPRESSION: 1. Pulmonary and osseous metastatic disease. Stable. 2. Small amount of perihepatic ascites. New. 3. Enlarged left para-aortic lymph node measuring 2.3 cm in short axis. Malignant lymph node is not excluded. Stable. 4. Colonic dilation up to 10 cm. No definite obstructive mass identified. Ileus versus small bowel obstruction is not excluded. New. 5. Wall thickening of the bladder measuring up to 1.3 cm. Malignancy, cystitis or underdistention may cause this appearance. Correlate with urinalysis. Stable. Thank you for allowing us to participate in the care of your patient. See rad report - Re-Assessments/Exams Free Text/Narrative Re-Assessment/Exam: 02/06/19 06:32 Patient case discussed with Dr. Sweet [place] 0076. Dr. Sweet states that he would prefer the patient be transferred to [place]. He was informed that ambulance would not transport to [place] due to weather and roads. Patient and family refuse to be transferred to [place] as they have had bad experiences. 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 Patient was intubated and on the vent, this occurred in 2017. Patient has a letter from his doctor requesting that prednisone, benadryl, pepcid, and singulair if any minor medical procedure. Pt's states they give the medications prior to chemo as well. The medications were given and NG tube was placed without difficulty. Patient was monitored throughout the night in ER. Dr. Sweet was called again at 0600. He asked why we could not transfer the patient. He was informed that family continues to refuse to go to [place], and the roads continue to be "no travel advised" and the ambulance service will not transport. He agreed at that time to accept the patient as inpatient. Departure - Departure Time of Disposition: 06:57 Disposition: Admitted As Inpatient 64 Condition: Fair Clinical Impression: Small bowel obstruction - Discharge Information *PRESCRIPTION DRUG MONITORING PROGRAM REVIEWED*: No *COPY OF PRESCRIPTION DRUG MONITORING REPORT IN PATIENT DON: No Forms: ED Department Discharge - My Orders Last 24 Hours: My Active Orders 02/05/19 20:38 Implanted Port Access [RC] DAILY Blood Culture x2 Reflex Set [OM.PC] Stat 02/05/19 21:00 CULTURE BLOOD [BC] Stat 02/05/19 23:13 NG [Nasogastric Orogastric Tube Insertion] [OM.PC] Routine - Assessment/Plan Last 24 Hours: My Active Orders 02/05/19 20:38 Implanted Port Access [RC] DAILY Blood Culture x2 Reflex Set [OM.PC] Stat 02/05/19 21:00 CULTURE BLOOD [BC] Stat 02/05/19 23:13 NG [Nasogastric Orogastric Tube Insertion] [OM.PC] Routine
[2019-02-06] MEDS ORDERED: Ondansetron 4 MG/2 ML SDV IVPUSH PRN (07:55)
[2019-02-06] MEDS ORDERED: Lactated Ringers 1,000 ML IV SCH (08:00)
[2019-02-06] MEDS ORDERED: Non-Formulary Medication 1 Each (Cyclobenzaprine [Flexeril] 5 MG) PO PRN (08:02)
[2019-02-06] MEDS ORDERED: Non-Formulary Medication 1 Each (Prochlorperazine [Compazine] 10 MG) PO PRN (08:02)
[2019-02-06] MEDS ORDERED: Albuterol/Ipratropium 3.0-0.5 MG/3 ML Neb Soln INH PRN (08:02)
[2019-02-06] MEDS ORDERED: Montelukast 10 MG Tab PO PRN (08:02)
[2019-02-06] MEDS ORDERED: Nystatin Susp 100,000 Unit/ML 5 ML UD Cup PO PRN (08:02)
[2019-02-06] MEDS ORDERED: Morphine 15 MG Tab.ER PO PRN (08:02)
[2019-02-06] MEDS ORDERED: Acetaminophen/oxyCODONE 325-5 MG Tab PO PRN (08:02)
[2019-02-06] MEDS ORDERED: oxyCODONE 5 MG Tab PO SCH (08:15)
--- NOTE | 2019-02-06 08:19 | PCM.HP ---
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 He presented with Abdominal distension, nausea, vomiting and constipation x 2 days. Patient has been receiving chemotherapy and radiation therapy. Last chemotherapy was 3 weeks ago. He said last week he received 5 days of radiation therapy. Following this he is been having constipation. He increased bowel regimen with minimal improvement. Yesterday he noted his abdomen was very distended. This was associated with nausea, vomiting. He also has mild abdominal pain. His last bowel movement was yesterday in the morning. Stool was loose. No blood or mucus. He was passing gas yesterday but none this morning. He denies fever, chills, chest pain, SOB. His appetite has decreased and has become weak. In the ER vitals were stable. Significant lab; wbc 14.8, Hb 9.4, Na 121. CT abdomen and pelvis showed Colonic dilation up to 10 cm. Findings concerning for Ileus versus small bowel obstruction. NGT was placed. Patient is being admitted to the hospital for further management. Onset of Symptoms: Reports: Gradual Duration of Symptoms: Reports: Day(s): Location: Reports: Abdomen Quality: Reports: Ache Severity: Moderate Improves with: Reports: None Worsens with: Reports: None Context: Reports: Other (meals) Associated Symptoms: Reports: Loss of Appetite, Nausea/Vomiting, Other ( abdominal distension) Abdominal Pain Score (Numeric/FACES): 5 - Related Data Allergies/Adverse Reactions: Allergies Allergy/AdvReac Type Severity Reaction Status Date / Time allopurinol Allergy Rash Verified 02/06/19 07:07 amoxicillin [From Augmentin] Allergy Rash Verified 02/06/19 07:07 clavulanic acid Allergy Rash Verified 02/06/19 07:07 [From Augmentin] levofloxacin Allergy Rash Verified 02/06/19 07:07 nitrofurantoin Allergy Facial Verified 02/06/19 07:07 [From Macrobid] Swelling Icypcdr-Udo-Rhp Reductase Allergy Muscle Verified 02/06/19 07:07 Inhibitor Aches colchicine Allergy Cannot Uncoded 02/06/19 07:07 Remember iodinated diagnostic agents Allergy Facial Uncoded 02/06/19 07:07 Swelling Home Medications: Home Meds Albuterol/Ipratropium [DuoNeb 3-0.5 MG/3 ML] 3 ml INH Q6H PRN 07/19/14 [History] Hydrochlorothiazide 25 mg PO DAILY 10/11/15 [History] metFORMIN [Glucophage] 750 mg PO BID 10/11/15 [History] Acetaminophen [Tylenol] 650 mg PO Q6H PRN 07/22/18 [History] Aspirin [Adult Low Dose Aspirin EC] 81 mg PO DAILY 07/22/18 [History] Loratadine [Claritin] 10 mg PO DAILY 07/22/18 [History] Montelukast [Singulair] 10 mg PO BEDTIME PRN 07/22/18 [History] Ondansetron [Zofran ODT] 8 mg PO Q8HR PRN 07/22/18 [History] Pantoprazole Sodium 40 mg PO BID 07/22/18 [History] Pyridoxine HCl [Vitamin B-6] 100 mg PO DAILY 07/22/18 [History] dilTIAZem HCl [Diltiazem 24Hr ER] 360 mg PO DAILY 07/22/18 [History] Cyclobenzaprine [Flexeril] 5 mg PO Q8H PRN 02/05/19 [History] Mag Oxide/D3/Turmeric Rt Xt [Magnesium-Vit D3-Turmeric Cap] 4 cap PO QID [History] Morphine [MS Contin] 30 mg PO BID PRN 02/05/19 [History] Nystatin [Mycostatin] 5 ml PO QID PRN 02/05/19 [History] Polyethylene Glycol 3350 [MiraLAX] 1 pack PO DAILY 02/05/19 [History] Sennosides/Docusate Sodium [Senna Plus Tablet] 4 tab PO BID 02/05/19 [History] oxyCODONE 10 mg PO ASDIRECTED 02/05/19 [History] Albuterol/Ipratropium [DuoNeb 3.0-0.5 MG/3 ML] 3 ml INH Q6H PRN 02/06/19 [ History] Metoprolol Tartrate 150 mg PO BID 02/06/19 [History] Morphine [MS Contin] 15 mg PO BID 02/06/19 [History] Potassium Chloride [Klor-Con] 20 meq PO BID 02/06/19 [History] Prochlorperazine [Compazine] 10 mg PO Q6H PRN 02/06/19 [History] oxyCODONE HCl/Acetaminophen [Percocet 5-325 mg Tablet] 1 tab PO Q6H PRN [History] Past Medical History HEENT History: Reports: Impaired Vision Other HEENT History: tonsillectomy and polops removed from nares bilterally Cardiovascular History: Reports: Arrhythmia, Blood Clots/VTE/DVT, High Cholesterol, Hypertension Respiratory History: Reports: Bronchitis, Recurrent, Pneumonia, Recurrent, Other (See Below) Other Respiratory History: uses home nebulizer prn Gastrointestinal History: Reports: Chronic Constipation, GERD, Hemorrhoids Genitourinary History: Reports: Prostate Disorder, Renal Calculus, UTI, Recurrent, Other (See Below) Other Genitourinary History: self caths self every 4th day due previous surgeries Musculoskeletal History: Reports: Gout Neurological History: Reports: None, Neuropathy, Peripheral Endocrine/Metabolic History: Reports: Diabetes, Type II, Obesity/BMI 30+ Oncologic (Cancer) History: Reports: Lung, Metastatic, Renal, Other (See Below) Other Oncologic History: bladder cancer - Infectious Disease History Infectious Disease History: Reports: Chicken Pox, Measles - Past Surgical History Male Surgical History: Reports: Lithotripsy (ESWL), TURP-Transurethral Resection of Prostate Neurological Surgical History: Reports: None Musculoskeletal Surgical History: Reports: None Social & Family History - Family History Family Medical History: Noncontributory Cardiac: Reports: Hypertension, VT, Stent, Other (See Below) Other Cardiac Family History: sister had cabg Respiratory: Reports: COPD Neurological: Reports: CVA Endocrine/Metabolic: Reports: Diabetes, type II Oncologic: Reports: Lung Other Oncologic Family History: sister had lung ca - Tobacco Use Smoking Status *Q: Never Smoker Second Hand Smoke Exposure: No - Caffeine Use Caffeine Use: Reports: None - Recreational Drug Use Recreational Drug Use: No - Living Situation & Occupation Living situation: Reports: , with Family Occupation: Retired H&P Review of Systems - Review of Systems: Review Of Systems: See Below General: Reports: Decreased Appetite HEENT: Reports: No Symptoms Pulmonary: Reports: Shortness of Breath Cardiovascular: Reports: No Symptoms Gastrointestinal: Reports: Abdominal Pain, Anorexia, Constipation, Decreased Appetite, Nausea, Vomiting Genitourinary: Reports: No Symptoms Musculoskeletal: Reports: No Symptoms Skin: Reports: No Symptoms Psychiatric: Reports: No Symptoms Neurological: Reports: No Symptoms Hematologic/Lymphatic: Reports: No Symptoms Immunologic: Reports: No Symptoms Exam - Exam Exam: See Below - Vital Signs Vital Signs: Last Vital Signs Temp 99.7 F 02/06/19 06:29 Pulse 93 02/06/19 06:29 Resp 18 02/06/19 06:29 BP 138/66 02/06/19 06:29 Pulse Ox 97 02/06/19 06:29 Weight: 206 lb 11.2 oz - Exam Quality Assessment: Supplemental Oxygen, DVT Prophylaxis General: Alert, Oriented, 4 HEENT: PERRLA, Hearing Intact, Mucosa Moist & [place], Nares Patent, Normal Nasal Septum, Posterior Pharynx Clear, Conjunctiva Clear, EOMI, EACs Clear, TMs Clear Neck: Supple, Trachea Midline, 2 Lungs: Clear to Auscultation, Normal Respiratory Effort Cardiovascular: Regular Rate, Regular Rhythm GI/Abdominal Exam: Distended, Abnormal Bowel Sounds, Other (Abdomen severely distended. Typanic to percussion.) (Male) Exam: No Hernia, Normal Inspection, Normal Prostate, Circumcised Rectal (Males) Exam: Normal Exam, Normal Rectal Tone, Prostate Normal Back Exam: Normal Inspection, Full Range of Motion, NT Extremities: Normal Inspection, Normal Range of Motion, Non-Tender, No Pedal Edema, Normal Capillary Refill Skin: Warm, Dry, Intact Neurological: Cranial Nerves Intact, Reflexes Equal Bilateral Neuro Extensive - Mental Status: Alert, Oriented x3, Normal Mood/Affect, Normal Cognition Neuro Extensive - Motor, Sensory, Reflexes: CN II-XII Intact, Normal Gait, Normal Reflexes Psychiatric: Alert, Normal Affect, Normal Mood - Patient Data Lab Results Last 24 hrs: Laboratory Results - last 24 hr 02/05/19 02/05/19 02/05/19 Range/Units 21:00 21:00 21:00 WBC 14.8 H (5.0-10.0) 10^3/uL RBC 2.94 L (4.6-6.2) 10^6/uL Hgb 9.4 L (14.0-18.0) g/dL Hct 27.7 L (40.0-54.0) % MCV 94.2 D (80-100) fL MCH 32.0 (27.0-34.0) pg MCHC 33.9 (33.0-35.0) g/dL Plt Count 250 D (150-450) 10^3/uL Neut % (Auto) 81.0 H (42.2-75.2) % Lymph % (Auto) 2.6 L (20.5-50.1) % [place] % (Auto) 16.1 H (2-8) % Eos % (Auto) 0.2 L (1.0-3.0) % Baso % (Auto) 0.1 (0.0-1.0) % Sodium 121 L (135-145) mmol/L Potassium 4.2 (3.6-5.0) mmol/L Chloride 84 L (101-111) mmol/L Carbon Dioxide 22.0 (21.0-31.0) mmol/L Anion Gap 19.2 BUN 21 H (7-18) mg/dL Creatinine 1.3 (0.6-1.3) mg/dL Est Cr Clr Drug Dosing 45.99 mL/min Estimated GFR (MDRD) 55 BUN/Creatinine Ratio 16.15 Glucose 148 H (74-105) mg/dL Lactic Acid 1.5 (0.5-2.2) mmol/L Calcium 8.3 L (8.4-10.2) mg/dl Total Bilirubin 0.7 (0.2-1.0) mg/dL AST 30 (10-42) IU/L ALT 15 (10-60) IU/L Alkaline Phosphatase 83 (42-121) IU/L Total Protein 6.1 L (6.7-8.2) g/dl Albumin 2.9 L (3.2-5.5) g/dl Globulin 3.2 Albumin/Globulin Ratio 0.91 Urine Color (YELLOW) Urine Appearance (CLEAR) Urine pH (5.0-9.0) Ur Specific [place] (1.005-1.030) Urine Protein (NEGATIVE) Urine Glucose (UA) (NEGATIVE) Urine Ketones (NEGATIVE) Urine Occult Blood (NEGATIVE) Urine Nitrite (NEGATIVE) Urine Bilirubin (NEGATIVE) Urine Urobilinogen (0.2-1.0) mg/dL Ur Leukocyte Esterase (NEGATIVE) Urine RBC /HPF Urine WBC (0-5/HPF) /HPF Ur Epithelial Cells /HPF Amorphous Sediment (0/HPF) /HPF Urine Bacteria (0-FEW/HPF) /HPF Urine Mucus /LPF 02/06/19 Range/Units 02:45 WBC (5.0-10.0) 10^3/uL RBC (4.6-6.2) 10^6/uL Hgb (14.0-18.0) g/dL Hct (40.0-54.0) % MCV (80-100) fL MCH (27.0-34.0) pg MCHC (33.0-35.0) g/dL Plt Count (150-450) 10^3/uL Neut % (Auto) (42.2-75.2) % Lymph % (Auto) (20.5-50.1) % [place] % (Auto) (2-8) % Eos % (Auto) (1.0-3.0) % Baso % (Auto) (0.0-1.0) % Sodium (135-145) mmol/L Potassium (3.6-5.0) mmol/L Chloride (101-111) mmol/L Carbon Dioxide (21.0-31.0) mmol/L Anion Gap BUN (7-18) mg/dL Creatinine (0.6-1.3) mg/dL Est Cr Clr Drug Dosing mL/min Estimated GFR (MDRD) BUN/Creatinine Ratio Glucose (74-105) mg/dL Lactic Acid (0.5-2.2) mmol/L Calcium (8.4-10.2) mg/dl Total Bilirubin (0.2-1.0) mg/dL AST (10-42) IU/L ALT (10-60) IU/L Alkaline Phosphatase (42-121) IU/L Total Protein (6.7-8.2) g/dl Albumin (3.2-5.5) g/dl Globulin Albumin/Globulin Ratio Urine Color Yellow (YELLOW) Urine Appearance Slightly cloudy (CLEAR) Urine pH 5.0 (5.0-9.0) Ur Specific [place] 1.015 (1.005-1.030) Urine Protein 30 H (NEGATIVE) Urine Glucose (UA) Negative (NEGATIVE) Urine Ketones 15 H (NEGATIVE) Urine Occult Blood Moderate H (NEGATIVE) Urine Nitrite Negative (NEGATIVE) Urine Bilirubin Negative (NEGATIVE) Urine Urobilinogen 0.2 (0.2-1.0) mg/dL Ur Leukocyte Esterase Negative (NEGATIVE) Urine RBC 10-20 H /HPF Urine WBC 5-10 H (0-5/HPF) /HPF Ur Epithelial Cells Rare /HPF Amorphous Sediment Rare (0/HPF) /HPF Urine Bacteria Rare (0-FEW/HPF) /HPF Urine Mucus Rare /LPF Result Diagrams: 02/05/19 21:00 02/05/19 21:00 - Problem List (1) Adynamic ileus SNOMED Code(s): 87602146 ICD Code: K56.0 - PARALYTIC ILEUS Status: Acute Current Visit: Yes (2) Hyponatremia SNOMED Code(s): 42356992 ICD Code: E87.1 - HYPO-OSMOLALITY AND HYPONATREMIA Status: Acute Current Visit: No (3) Small bowel obstruction SNOMED Code(s): 203145393 ICD Code: K56.609 - UNSP INTESTNL OBST, UNSP TO PARTIAL VERSUS COMPLETE OBST Status: Acute Current Visit: No (4) Leukocytosis SNOMED Code(s): 524506297, 538392073 ICD Code: D72.829 - ELEVATED WHITE BLOOD CELL COUNT, UNSPECIFIED Status: Acute Current Visit: Yes Problem List Initiated/Reviewed/Updated: Yes Orders Last 24hrs: Active Orders 24 hr Category Date Time Status Patient Status [ADT] Routine ADT 02/06/19 07:55 Ordered Implanted Port Access [RC] DAILY Care 02/05/19 20:38 Active Intake and Output [RC] QSHIFT Care 02/06/19 07:58 Ordered Notify Provider Vital Signs [RC] ASDIRECTED Care 02/06/19 07:58 Ordered Oxygen Therapy [RC] PRN Care 02/06/19 07:55 Ordered Pulse Oximetry [RC] PRN Care 02/06/19 07:58 Ordered Up With Assistance [RC] ASDIRECTED Care 02/06/19 07:55 Ordered VTE/DVT Education [RC] PER UNIT ROUTINE Care 02/06/19 07:55 Ordered Vital Signs [RC] Q4H Care 02/06/19 07:55 Ordered Nothing per Oral Now Diet [DIET] Diet 02/06/19 Breakfast Ordered BASIC METABOLIC PANEL,BMP [CHEM] Stat Lab 02/06/19 07:55 Ordered CBC WITH AUTO DIFF [HEME] Stat Lab 02/06/19 07:55 Ordered CULTURE BLOOD [BC] Stat Lab 02/05/19 21:00 Received LACTIC ACID [CHEM] Routine Lab 02/06/19 08:06 Ordered MAGNESIUM [CHEM] Stat Lab 02/06/19 07:55 Ordered PHOSPHORUS [CHEM] Stat Lab 02/06/19 07:55 Ordered Acetaminophen/oxyCODONE [Percocet 325-5 MG] Med 02/06/19 08:02 Ordered 1 tab PO Q6H PRN Albuterol/Ipratropium [DuoNeb 3.0-0.5 MG/3 ML] Med 02/06/19 08:02 Ordered 3 ml INH Q6H PRN Aspirin [Halfprin] Med 02/06/19 09:00 Ordered 81 mg PO DAILY Cyclobenzaprine [Flexeril] Med 02/06/19 08:02 Ordered 5 mg PO Q8H PRN Heparin Sodium Med 02/06/19 08:00 Ordered 5,000 units SUBCUT Q12H Hydrochlorothiazide [Hydrochlorothiazide] Med 02/06/19 09:00 Ordered 25 mg PO DAILY Lactated Ringers [Ringers, Lactated] 1,000 ml Med 02/06/19 08:00 Ordered IV ASDIRECTED Loratadine [Claritin] Med 02/06/19 09:00 Ordered 10 mg PO DAILY Mag Oxide/D3/Turmeric Rt Xt [Magnesium-Vit D3-Turmeric Med 02/06/19 09:00 Ordered Cap] 4 cap PO QID Metoprolol Tartrate [Metoprolol Tartrate] Med 02/06/19 09:00 Ordered 150 mg PO BID Montelukast [Singulair] Med 02/06/19 08:02 Ordered 10 mg PO BEDTIME PRN Morphine [MS Contin] Med 02/06/19 09:00 Ordered 15 mg PO BID Morphine [MS Contin] Med 02/06/19 08:02 Ordered 30 mg PO BID PRN Nystatin [Mycostatin] Med 02/06/19 08:02 Ordered 5 ml PO QID PRN Ondansetron [Zofran] Med 02/06/19 07:55 Ordered 4 mg IVPUSH Q8H PRN Prochlorperazine [Compazine] Med 02/06/19 08:02 Ordered 10 mg PO Q6H PRN Sodium Chloride 0.9% [Normal Saline] 1,000 ml Med 02/06/19 06:03 Active IV .BOLUS Vitamin B6-pyridOXINE Med 02/06/19 09:00 Ordered 100 mg PO DAILY dilTIAZem HCl Med 02/06/19 09:00 Ordered 360 mg PO DAILY oxyCODONE Med 02/06/19 08:15 Ordered 10 mg PO ASDIRECTED Blood Culture x2 Reflex Set [OM.PC] Stat Oth 02/05/19 20:38 Ordered NG [Nasogastric Orogastric Tube Insertion] [OM.PC] Oth 02/05/19 23:13 Ordered Routine Resuscitation Status Routine Resus Stat 02/06/19 07:55 Ordered Medication Orders Albuterol/Ipratropium (Duoneb 3.0-0.5 Mg/3 Ml) 3 ml INH Q6H PRN PRN Reason: Cough Aspirin (Halfprin) 81 mg PO DAILY [facility] Heparin Sodium (Porcine) (Heparin Sodium) 5,000 units SUBCUT Q12H [facility] Sodium Chloride (Normal Saline) 1,000 mls @ 75 mls/hr IV .BOLUS ONE Stop: 02/06/19 19:22 Last Admin: 02/06/19 06:10 Dose: 75 mls/hr Lactated Ringer's (Ringers, Lactated) 1,000 mls @ 100 mls/hr IV ASDIRECTED [facility] Montelukast Sodium (Singulair) 10 mg PO BEDTIME PRN PRN Reason: Dyspnea Morphine Sulfate (Ms Contin) 15 mg PO BID [facility] Morphine Sulfate (Ms Contin) 30 mg PO BID PRN PRN Reason: Pain Non-Formulary Medication (Cyclobenzaprine [Flexeril]) 5 mg PO Q8H PRN PRN Reason: Spasms Non-Formulary Medication (Diltiazem Hcl) 360 mg PO DAILY [facility] Non-Formulary Medication (Hydrochlorothiazide [Hydrochlorothiazide]) 25 mg PO DAILY [facility] Non-Formulary Medication (Loratadine [Claritin]) 10 mg PO DAILY [facility] Non-Formulary Medication (Mag Oxide/D3/Turmeric Rt Xt [Magnesium-Vit D3- Turmeric Cap]) 4 cap PO QID [facility] Non-Formulary Medication (Metoprolol Tartrate [Metoprolol Tartrate]) 150 mg PO BID [facility] Non-Formulary Medication (Prochlorperazine [Compazine]) 10 mg PO Q6H PRN PRN Reason: Nausea Nystatin (Mycostatin) 5 ml PO QID PRN PRN Reason: thrush Ondansetron HCl (Zofran) 4 mg IVPUSH Q8H PRN PRN Reason: Nausea/Vomiting Oxycodone HCl (Oxycodone) 10 mg PO ASDIRECTED [facility] Oxycodone/Acetaminophen (Percocet 325-5 Mg) 1 tab PO Q6H PRN PRN Reason: Pain Pyridoxine HCl (Vitamin B6-Pyridoxine) 100 mg PO DAILY [facility] Assessment/Plan Comment:: 68 y/o male with 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 Patient has been receiving chemotherapy and radiation therapy. CT abdomen and pelvis showed Colonic dilation up to 10 cm. Findings concerning for Ileus versus small bowel obstruction. I spoke with ER provider last night to discuss transfer of patient to [place] since roads to [place] were closed due to inclement weather. ER provider did not get back to me until this morning around 6.00 AM. Patient was detained in the ER and NGT placed. Will admit patient to medical floor Monitor vitals Repeat labs; cbc, bmp. mag. phos, lactate IVF, LR @ 100/hr NPO Continue NGT to [facility]WS IV Cipro Serial abdominal exam Transfer to [facility] for surgical evaluation when weather improves and roads re- opened. Family do not want to go to [place]. Leukocytosis Repaet cbc Moderate Hyponatremia Na 121. Repeat BMP Patient asymptomatic IVF Na q4h Chronic anemia due to malignancy and chemotherapy Stable H&H Monitor hb closely Kidney and Lung Ca with metastasis to bones Continue home medication for pain Hip pain due to bone metastasis Continue home medication Full code
[2019-02-06] MEDS ORDERED: Aspirin 81 MG Tab.EC PO SCH (09:00)
[2019-02-06] MEDS ORDERED: [UNRECOGNIZED DRUG - OTHER] PO SCH (09:00)
[2019-02-06] MEDS ORDERED: MAG OXIDE PO SCH (09:00)
[2019-02-06] MEDS ORDERED: Morphine 15 MG Tab.ER PO SCH (09:00)
[2019-02-06] MEDS ORDERED: TURMERIC RT XT PO SCH (09:00)
[2019-02-06] MEDS ORDERED: DILTIAZEM HCL 360 MG PO SCH (09:00)
[2019-02-06] MEDS ORDERED: Vitamin B6-pyridOXINE 100 MG Tab PO SCH (09:00)
[2019-02-06] MEDS ORDERED: Non-Formulary Medication 1 Each (Loratadine [Claritin] 10 MG) PO SCH (09:00)
[2019-02-06] MEDS ORDERED: Heparin Sodium 5,000 Units/ML Vial SUBCUT SCH (09:00)
[2019-02-06] MEDS ORDERED: Non-Formulary Medication 1 Each (Hydrochlorothiazide [Hydrochlorothiazide] 25 MG) PO SCH (09:00)
[2019-02-06] MEDS ORDERED: D3 PO SCH (09:00)
[2019-02-06] MEDS ORDERED: METOPROLOL TARTRATE 150 MG PO SCH (09:00)
[2019-02-06 09:02] VITALS: BP 125/65
--- NOTE | 2019-02-06 10:29 | CR ---
Clinical history: NG tube placement 68-year-old male. Interpretation: Single AP supine film lower chest and upper abdomen confirms midline esophageal location of the NG tube which passes through the gastroesophageal juncture and short distal segment curved in the left upper quadrant (fundus stomach). Incidentally noted gaseous distention of the large bowel. No gross evidence free intraperitoneal air. Multiple nodular mass lesions identified in the parenchyma both lung bases (metastatic disease). Normal cardiac silhouette. CONCLUSION: Tip of the NG tube in the gastric fundus.
--- NOTE | 2019-02-06 11:46 | PCM.DCSUM1 ---
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 He presented with Abdominal distension, nausea, vomiting and constipation x 2 days. Patient has been receiving chemotherapy and radiation therapy. Last chemotherapy was 3 weeks ago. He said last week he received 5 days of radiation therapy. Following this he is been having constipation. He increased bowel regimen with minimal improvement. Yesterday he noted his abdomen was very distended. This was associated with nausea, vomiting. He also has mild abdominal pain. His last bowel movement was yesterday in the morning. Stool was loose. No blood or mucus. He was passing gas yesterday but none this morning. CT abdomen and pelvis showed Colonic dilation up to 10 cm. Findings concerning for Ileus versus small bowel obstruction. NGT was placed. Abdominal distension is not improving. Output from NGT has been negative. He is being transfer to [facility] for further evaluation and general surgery evaluation. At the time of discharge his vitals were stable. Diagnosis: Stroke: No - Discharge Data Discharge Date: 02/06/19 Discharge Disposition: DC/Tfer to Acute Hospital 02 Condition: Fair - Discharge Diagnosis/Problem(s) (1) Adynamic ileus SNOMED Code(s): 49439775 ICD Code: K56.0 - PARALYTIC ILEUS Status: Acute Current Visit: Yes (2) Hyponatremia SNOMED Code(s): 21585096 ICD Code: E87.1 - HYPO-OSMOLALITY AND HYPONATREMIA Status: Acute Current Visit: No (3) Small bowel obstruction SNOMED Code(s): 407346626 ICD Code: K56.609 - UNSP INTESTNL OBST, UNSP TO PARTIAL VERSUS COMPLETE OBST Status: Acute Current Visit: No (4) Leukocytosis SNOMED Code(s): 246868091, 380905444 ICD Code: D72.829 - ELEVATED WHITE BLOOD CELL COUNT, UNSPECIFIED Status: Acute Current Visit: Yes - Discharge Plan *PRESCRIPTION DRUG MONITORING PROGRAM REVIEWED*: No *COPY OF PRESCRIPTION DRUG MONITORING REPORT IN PATIENT DON: No Home Medications: Home Meds Albuterol/Ipratropium [DuoNeb 3.0-0.5 MG/3 ML] 3 ml INH Q6H PRN 07/19/14 [ History] Hydrochlorothiazide 25 mg PO DAILY 10/11/15 [History] metFORMIN [Glucophage] 750 mg PO BID 10/11/15 [History] Acetaminophen [Tylenol] 650 mg PO Q6H PRN 07/22/18 [History] Aspirin [Adult Low Dose Aspirin EC] 81 mg PO DAILY 07/22/18 [History] Loratadine [Claritin] 10 mg PO DAILY 07/22/18 [History] Montelukast [Singulair] 10 mg PO BEDTIME PRN 07/22/18 [History] Ondansetron [Zofran ODT] 8 mg PO Q8HR PRN 07/22/18 [History] Pantoprazole Sodium 40 mg PO BID 07/22/18 [History] Pyridoxine HCl [Vitamin B-6] 100 mg PO DAILY 07/22/18 [History] dilTIAZem HCl [Diltiazem 24Hr ER] 360 mg PO DAILY 07/22/18 [History] Cyclobenzaprine [Flexeril] 5 mg PO Q8H PRN 02/05/19 [History] Mag Oxide/D3/Turmeric Rt Xt [Magnesium-Vit D3-Turmeric Cap] 4 cap PO QID [History] Morphine [MS Contin] 30 mg PO BID PRN 02/05/19 [History] Nystatin [Mycostatin] 5 ml PO QID PRN 02/05/19 [History] Polyethylene Glycol 3350 [MiraLAX] 1 pack PO DAILY 02/05/19 [History] Sennosides/Docusate Sodium [Senna Plus Tablet] 4 tab PO BID 02/05/19 [History] oxyCODONE 10 mg PO ASDIRECTED 02/05/19 [History] Albuterol/Ipratropium [DuoNeb 3.0-0.5 MG/3 ML] 3 ml INH Q6H PRN 02/06/19 [ History] Metoprolol Tartrate 150 mg PO BID 02/06/19 [History] Morphine [MS Contin] 15 mg PO BID 02/06/19 [History] Potassium Chloride [Klor-Con] 20 meq PO BID 02/06/19 [History] Prochlorperazine [Compazine] 10 mg PO Q6H PRN 02/06/19 [History] oxyCODONE HCl/Acetaminophen [Percocet 5-325 mg Tablet] 1 tab PO Q6H PRN [History] Forms: ED Department Discharge Referrals: PCP,None [Primary Care Provider] - - Discharge Summary/Plan Comment DC Time >30 min.: Yes - General Info Date of Service: 02/06/19 Admission Dx/Problem (Free Text: Admission Diagnosis/Problem Admission Diagnosis/Problem Small bowel obstruction Functional Status: Reports: Pain Controlled - Review of Systems General: Reports: No Symptoms HEENT: Reports: No Symptoms Pulmonary: Reports: No Symptoms Cardiovascular: Reports: No Symptoms Gastrointestinal: Reports: No Symptoms Genitourinary: Reports: No Symptoms Musculoskeletal: Reports: No Symptoms Skin: Reports: No Symptoms Neurological: Reports: No Symptoms Psychiatric: Reports: No Symptoms - Patient Data Vitals - Most Recent: Last Vital Signs Temp 97.7 F 02/06/19 07:55 Pulse 119 H 02/06/19 07:55 Resp 16 02/06/19 07:55 BP 125/65 02/06/19 07:55 Pulse Ox 96 02/06/19 07:55 Weight - Most Recent: 206 lb 11.2 oz I&O - Last 24 hours: Intake & Output 02/05/19 02/06/19 02/06/19 22:59 06:59 14:59 Intake Total 2000 Output Total 775 Balance 1225 Lab Results - Last 24 hrs: Laboratory Results - last 24 hr 02/05/19 02/05/19 02/05/19 Range/Units 21:00 21:00 21:00 WBC 14.8 H (5.0-10.0) 10^3/uL RBC 2.94 L (4.6-6.2) 10^6/uL Hgb 9.4 L (14.0-18.0) g/dL Hct 27.7 L (40.0-54.0) % MCV 94.2 D (80-100) fL MCH 32.0 (27.0-34.0) pg MCHC 33.9 (33.0-35.0) g/dL Plt Count 250 D (150-450) 10^3/uL Neut % (Auto) 81.0 H (42.2-75.2) % Lymph % (Auto) 2.6 L (20.5-50.1) % Cooper % (Auto) 16.1 H (2-8) % Eos % (Auto) 0.2 L (1.0-3.0) % Baso % (Auto) 0.1 (0.0-1.0) % Sodium 121 L (135-145) mmol/L Potassium 4.2 (3.6-5.0) mmol/L Chloride 84 L (101-111) mmol/L Carbon Dioxide 22.0 (21.0-31.0) mmol/L Anion Gap 19.2 BUN 21 H (7-18) mg/dL Creatinine 1.3 (0.6-1.3) mg/dL Est Cr Clr Drug Dosing 45.99 mL/min Estimated GFR (MDRD) 55 BUN/Creatinine Ratio 16.15 Glucose 148 H (74-105) mg/dL Lactic Acid 1.5 (0.5-2.2) mmol/L Calcium 8.3 L (8.4-10.2) mg/dl Phosphorus (2.5-4.6) mg/dL Magnesium (1.8-2.5) mg/dL Total Bilirubin 0.7 (0.2-1.0) mg/dL AST 30 (10-42) IU/L ALT 15 (10-60) IU/L Alkaline Phosphatase 83 (42-121) IU/L Total Protein 6.1 L (6.7-8.2) g/dl Albumin 2.9 L (3.2-5.5) g/dl Globulin 3.2 Albumin/Globulin Ratio 0.91 Urine Color (YELLOW) Urine Appearance (CLEAR) Urine pH (5.0-9.0) Ur Specific [place] (1.005-1.030) Urine Protein (NEGATIVE) Urine Glucose (UA) (NEGATIVE) Urine Ketones (NEGATIVE) Urine Occult Blood (NEGATIVE) Urine Nitrite (NEGATIVE) Urine Bilirubin (NEGATIVE) Urine Urobilinogen (0.2-1.0) mg/dL Ur Leukocyte Esterase (NEGATIVE) Urine RBC /HPF Urine WBC (0-5/HPF) /HPF Ur Epithelial Cells /HPF Amorphous Sediment (0/HPF) /HPF Urine Bacteria (0-FEW/HPF) /HPF Urine Mucus /LPF 02/06/19 02/06/19 02/06/19 Range/Units 02:45 08:35 08:35 WBC 10.1 H (5.0-10.0) 10^3/uL RBC 2.67 L (4.6-6.2) 10^6/uL Hgb 8.5 L (14.0-18.0) g/dL Hct 25.5 L (40.0-54.0) % MCV 95.5 (80-100) fL MCH 31.8 (27.0-34.0) pg MCHC 33.3 (33.0-35.0) g/dL Plt Count 202 (150-450) 10^3/uL Neut % (Auto) 95.8 H (42.2-75.2) % Lymph % (Auto) 1.6 L (20.5-50.1) % Cooper % (Auto) 2.5 (2-8) % Eos % (Auto) 0.0 L (1.0-3.0) % Baso % (Auto) 0.1 (0.0-1.0) % Sodium 125 L (135-145) mmol/L Potassium 4.0 (3.6-5.0) mmol/L Chloride 89 L (101-111) mmol/L Carbon Dioxide 20.0 L (21.0-31.0) mmol/L Anion Gap 20.0 BUN 18 (7-18) mg/dL Creatinine 1.2 (0.6-1.3) mg/dL Est Cr Clr Drug Dosing 49.83 mL/min Estimated GFR (MDRD) 60 BUN/Creatinine Ratio Glucose 154 H (74-105) mg/dL Lactic Acid (0.5-2.2) mmol/L Calcium 8.1 L (8.4-10.2) mg/dl Phosphorus 3.6 (2.5-4.6) mg/dL Magnesium 1.8 (1.8-2.5) mg/dL Total Bilirubin (0.2-1.0) mg/dL AST (10-42) IU/L ALT (10-60) IU/L Alkaline Phosphatase (42-121) IU/L Total Protein (6.7-8.2) g/dl Albumin (3.2-5.5) g/dl Globulin Albumin/Globulin Ratio Urine Color Yellow (YELLOW) Urine Appearance Slightly cloudy (CLEAR) Urine pH 5.0 (5.0-9.0) Ur Specific [place] 1.015 (1.005-1.030) Urine Protein 30 H (NEGATIVE) Urine Glucose (UA) Negative (NEGATIVE) Urine Ketones 15 H (NEGATIVE) Urine Occult Blood Moderate H (NEGATIVE) Urine Nitrite Negative (NEGATIVE) Urine Bilirubin Negative (NEGATIVE) Urine Urobilinogen 0.2 (0.2-1.0) mg/dL Ur Leukocyte Esterase Negative (NEGATIVE) Urine RBC 10-20 H /HPF Urine WBC 5-10 H (0-5/HPF) /HPF Ur Epithelial Cells Rare /HPF Amorphous Sediment Rare (0/HPF) /HPF Urine Bacteria Rare (0-FEW/HPF) /HPF Urine Mucus Rare /LPF 02/06/19 Range/Units 08:35 WBC (5.0-10.0) 10^3/uL RBC (4.6-6.2) 10^6/uL Hgb (14.0-18.0) g/dL Hct (40.0-54.0) % MCV (80-100) fL MCH (27.0-34.0) pg MCHC (33.0-35.0) g/dL Plt Count (150-450) 10^3/uL Neut % (Auto) (42.2-75.2) % Lymph % (Auto) (20.5-50.1) % Cooper % (Auto) (2-8) % Eos % (Auto) (1.0-3.0) % Baso % (Auto) (0.0-1.0) % Sodium (135-145) mmol/L Potassium (3.6-5.0) mmol/L Chloride (101-111) mmol/L Carbon Dioxide (21.0-31.0) mmol/L Anion Gap BUN (7-18) mg/dL Creatinine (0.6-1.3) mg/dL Est Cr Clr Drug Dosing mL/min Estimated GFR (MDRD) BUN/Creatinine Ratio Glucose (74-105) mg/dL Lactic Acid 0.7 (0.5-2.2) mmol/L Calcium (8.4-10.2) mg/dl Phosphorus (2.5-4.6) mg/dL Magnesium (1.8-2.5) mg/dL Total Bilirubin (0.2-1.0) mg/dL AST (10-42) IU/L ALT (10-60) IU/L Alkaline Phosphatase (42-121) IU/L Total Protein (6.7-8.2) g/dl Albumin (3.2-5.5) g/dl Globulin Albumin/Globulin Ratio Urine Color (YELLOW) Urine Appearance (CLEAR) Urine pH (5.0-9.0) Ur Specific [place] (1.005-1.030) Urine Protein (NEGATIVE) Urine Glucose (UA) (NEGATIVE) Urine Ketones (NEGATIVE) Urine Occult Blood (NEGATIVE) Urine Nitrite (NEGATIVE) Urine Bilirubin (NEGATIVE) Urine Urobilinogen (0.2-1.0) mg/dL Ur Leukocyte Esterase (NEGATIVE) Urine RBC /HPF Urine WBC (0-5/HPF) /HPF Ur Epithelial Cells /HPF Amorphous Sediment (0/HPF) /HPF Urine Bacteria (0-FEW/HPF) /HPF Urine Mucus /LPF Med Orders - Current: Current Medications Albuterol/Ipratropium (Duoneb 3.0-0.5 Mg/3 Ml) 3 ml INH Q6H PRN PRN Reason: Cough Aspirin (Halfprin) 81 mg PO DAILY [facility] Heparin Sodium (Porcine) (Heparin Sodium) 5,000 units SUBCUT Q12HR [facility] Last Admin: 02/06/19 10:43 Dose: 5,000 units Sodium Chloride (Normal Saline) 1,000 mls @ 75 mls/hr IV .BOLUS ONE Stop: 02/06/19 19:22 Last Infusion: 02/06/19 11:14 Dose: 75 mls/hr Lactated Ringer's (Ringers, Lactated) 1,000 mls @ 100 mls/hr IV ASDIRECTED [facility] Last Admin: 02/06/19 11:09 Dose: 100 mls/hr Montelukast Sodium (Singulair) 10 mg PO BEDTIME PRN PRN Reason: Dyspnea Morphine Sulfate (Ms Contin) 15 mg PO BID [facility] Morphine Sulfate (Ms Contin) 30 mg PO BID PRN PRN Reason: Pain Non-Formulary Medication (Cyclobenzaprine [Flexeril]) 5 mg PO Q8H PRN PRN Reason: Spasms Non-Formulary Medication (Diltiazem Hcl) 360 mg PO DAILY [facility] Non-Formulary Medication (Hydrochlorothiazide [Hydrochlorothiazide]) 25 mg PO DAILY [facility] Non-Formulary Medication (Loratadine [Claritin]) 10 mg PO DAILY [facility] Non-Formulary Medication (Mag Oxide/D3/Turmeric Rt Xt [Magnesium-Vit D3- Turmeric Cap]) 4 cap PO QID [facility] Non-Formulary Medication (Metoprolol Tartrate [Metoprolol Tartrate]) 150 mg PO BID [facility] Non-Formulary Medication (Prochlorperazine [Compazine]) 10 mg PO Q6H PRN PRN Reason: Nausea Nystatin (Mycostatin) 5 ml PO QID PRN PRN Reason: thrush Ondansetron HCl (Zofran) 4 mg IVPUSH Q8HR PRN PRN Reason: Nausea/Vomiting Oxycodone HCl (Oxycodone) 10 mg PO ASDIRECTED [facility] Oxycodone/Acetaminophen (Percocet 325-5 Mg) 1 tab PO Q6H PRN PRN Reason: Pain Pyridoxine HCl (Vitamin B6-Pyridoxine) 100 mg PO DAILY [facility] Discontinued Medications Acetaminophen (Tylenol) 650 mg PO NOW ONE Stop: 02/05/19 22:24 Last Admin: 02/05/19 22:27 Dose: 650 mg Acetaminophen (Tylenol) 650 mg PO NOW ONE Stop: 02/05/19 22:24 Last Admin: 02/05/19 22:26 Dose: Not Given Diphenhydramine HCl (Benadryl) 50 mg IVPUSH ONETIME ONE Stop: 02/05/19 23:11 Last Admin: 02/05/19 23:19 Dose: 50 mg Famotidine (Pepcid) 20 mg IVPUSH ONETIME ONE Stop: 02/05/19 23:11 Last Admin: 02/05/19 23:21 Dose: 20 mg Sodium Chloride (Normal Saline) 1,000 mls @ 999 mls/hr IV .BOLUS ONE Stop: 02/05/19 21:39 Last Admin: 02/05/19 21:03 Dose: 999 mls/hr Sodium Chloride (Normal Saline) 1,000 mls @ 125 mls/hr IV NOW STA Stop: 02/06/19 06:20 Last Admin: 02/05/19 22:25 Dose: 125 mls/hr Sodium Chloride (Normal Saline) 1,000 mls @ 125 mls/hr IV .BOLUS ONE Stop: 02/06/19 06:22 Last Admin: 02/05/19 22:26 Dose: Not Given Montelukast Sodium (Singulair) 10 mg PO ONETIME ONE Stop: 02/05/19 23:13 Last Admin: 02/05/19 23:26 Dose: 10 mg Morphine Sulfate (Morphine) 2 mg IVPUSH ONETIME ONE Stop: 02/06/19 01:03 Last Admin: 02/06/19 01:06 Dose: 2 mg Morphine Sulfate (Morphine) 2 mg IVPUSH ONETIME ONE Stop: 02/06/19 11:15 Last Admin: 02/06/19 11:25 Dose: 2 mg Prednisone (Prednisone) 50 mg PO ONETIME ONE Stop: 02/05/19 23:10 Last Admin: 02/05/19 23:23 Dose: 50 mg - Exam Quality Assessment: Reports: DVT Prophylaxis General: Reports: Alert, Oriented HEENT: Reports: Pupils Equal, Pupils Reactive, EOMI, Mucous Membr. Moist/[place] Neck: Reports: Supple Lungs: Reports: Clear to Auscultation, Normal Respiratory Effort Cardiovascular: Reports: Regular Rate, Regular Rhythm GI/Abdominal Exam: Normal Bowel Sounds, Soft, Non-Tender, No Organomegaly, No Distention, No Abnormal Bruit, No Mass, Pelvis Stable, Other (Abdominal distension. ) (Male) Exam: No Hernia, Normal Inspection, Normal Prostate, Circumcised Rectal (Males) Exam: Normal Exam, Normal Rectal Tone, Prostate Normal Back Exam: Reports: Normal Inspection, Full Range of Motion Extremities: Normal Inspection, Normal Range of Motion, Non-Tender, No Pedal Edema, Normal Capillary Refill Skin: Reports: Warm, Dry, Intact Wound/Incisions: Reports: Healing Well Neurological: Reports: No New Focal Deficit Psy/Mental Status: Reports: Alert, Normal Affect, Normal Mood
== END 2019-02-06 11:47 | DRG 389 ==
LOC: DL.ED 20:15 → UNDOADMIN 02-06 06:27 → DL.MS 02-06 06:27
PROVIDERS: ADMIT Student in an Organized Health Care Education/Training Program; ATTEND Student in an Organized Health Care Education/Training Program
PROC: 0D9670Z Drainage of Stomach with Drainage Device, Via Natural or Artificial Opening (ICD-10-PCS; principal; 2019-02-05)
DX: K56.0 Paralytic ileus (principal); E87.1 Hypo-osmolality and hyponatremia; C64.9 Malignant neoplasm of unspecified kidney, except renal pelvis; R11.2 Nausea with vomiting, unspecified; R10.9 Unspecified abdominal pain; C79.51 Secondary malignant neoplasm of bone; C34.90 Malignant neoplasm of unspecified part of unspecified bronchus or lung; K56.609 Unspecified intestinal obstruction, unspecified as to partial versus complete obstruction; H54.7 Unspecified visual loss; D72.829 Elevated white blood cell count, unspecified; D64.81 Anemia due to antineoplastic chemotherapy; T45.1X5A Adverse effect of antineoplastic and immunosuppressive drugs, initial encounter; D63.0 Anemia in neoplastic disease; G89.3 Neoplasm related pain (acute) (chronic); K21.9 Gastro-esophageal reflux disease without esophagitis; E78.00 Pure hypercholesterolemia, unspecified; I10 Essential (primary) hypertension; K59.09 Other constipation; M10.9 Gout, unspecified; E11.42 Type 2 diabetes mellitus with diabetic polyneuropathy; E66.9 Obesity, unspecified; N42.9 Disorder of prostate, unspecified; Z88.8 Allergy status to other drugs, medicaments and biological substances; Z88.1 Allergy status to other antibiotic agents; Z86.718 Personal history of other venous thrombosis and embolism; Z85.118 Personal history of other malignant neoplasm of bronchus and lung; Z85.528 Personal history of other malignant neoplasm of kidney; Z85.830 Personal history of malignant neoplasm of bone; Z79.899 Other long term (current) drug therapy; K59.00 Constipation, unspecified; Z68.34 Body mass index [BMI] 34.0-34.9, adult; Z90.89 Acquired absence of other organs; Z79.84 Long term (current) use of oral hypoglycemic drugs; Z92.21 Personal history of antineoplastic chemotherapy; Z92.3 Personal history of irradiation; Z79.82 Long term (current) use of aspirin; Z85.51 Personal history of malignant neoplasm of bladder; Z91.041 Radiographic dye allergy status; Z79.891 Long term (current) use of opiate analgesic; Z87.01 Personal history of pneumonia (recurrent); Z87.442 Personal history of urinary calculi; Z87.440 Personal history of urinary (tract) infections
CPT/HCPCS: 36415; 43753; 74176; 80053; 81001; 83605; 85025; 87040; 96365; 96366 ×4; 96375 ×4; 99285; A9270 ×3; J1200; J2270; J3490; J7030 ×4; 74018; 80048; 83735; 84100; J1644; J7120

== ENCOUNTER 2019-04-05 09:52 | Inpatient (IN) | payer MEDICARE ==
[2019-04-05] MEDS ORDERED: Morphine 10 MG/ML Syringe IVPUSH ONE (09:57)
[2019-04-05] MEDS ORDERED: Ondansetron 4 MG/2 ML SDV IV ONE ×2 (09:57→10:44)
[2019-04-05] MEDS ORDERED: Morphine 4 MG/ML Syringe ONE (10:01)
[2019-04-05] MEDS ORDERED: Morphine 4 MG/ML Syringe IVPUSH ONE ×2 (10:43→20:19)
[2019-04-05] MEDS ORDERED: Lidocaine 5% Oint 35.44 GM Tube TOP ONE (10:44)
--- NOTE | 2019-04-05 12:28 | EDM.PDOC ---
Scribed by Carrie Carrasco 04/05/19 1010 for Brian Dempsey MD ED HPI GENERAL MEDICAL PROBLEM - General Chief Complaint: General Stated Complaint: AMBULANCE Time Seen by Provider: 04/05/19 09:51 Source of Information: Reports: Patient, EMS, EMS Notes Reviewed, RN, RN Notes Reviewed History Limitations: Reports: No Limitations - History of Present Illness INITIAL COMMENTS - FREE TEXT/NARRATIVE: Patient presents to ER by [facility] with severe pain since 4 :00 a.m. He took his pain medication at 9:00 a.m. and again at 10:15 a.m. Patient has a history of bladder/kidney, and lung cancer with mets to bone. He has recently been receiving radiation therapy, but states he will not be having any more radiation or chemo. He denies any falls or injury. 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(s) Right Hip Pain Score (Numeric/FACES): 6 - Related Data Allergies Allergy/AdvReac Type Severity Reaction Status Date / Time allopurinol Allergy Rash Verified 04/05/19 10:23 amoxicillin [From Augmentin] Allergy Rash Verified 04/05/19 10:23 clavulanic acid Allergy Rash Verified 04/05/19 10:23 [From Augmentin] levofloxacin Allergy Rash Verified 04/05/19 10:23 nitrofurantoin Allergy Facial Verified 04/05/19 10:23 [From Macrobid] Swelling Oitcgdj-Are-Ahd Reductase Allergy Muscle Verified 04/05/19 10:23 Inhibitor Aches colchicine Allergy Cannot Uncoded 02/06/19 07:07 Remember iodinated diagnostic agents Allergy Facial Uncoded 02/06/19 07:07 Swelling Home Meds: Home Meds Albuterol/Ipratropium [DuoNeb 3.0-0.5 MG/3 ML] 3 ml INH Q6H PRN 07/19/14 [ History] Hydrochlorothiazide 12.5 mg PO DAILY 10/11/15 [History] metFORMIN [Glucophage] 750 mg PO BID 10/11/15 [History] Acetaminophen [Tylenol] 650 mg PO Q6H PRN 07/22/18 [History] Aspirin [Adult Low Dose Aspirin EC] 81 mg PO DAILY 07/22/18 [History] Loratadine [Claritin] 10 mg PO DAILY 07/22/18 [History] Montelukast [Singulair] 10 mg PO BEDTIME 07/22/18 [History] Ondansetron [Zofran ODT] 8 mg PO Q8HR PRN 07/22/18 [History] Pantoprazole Sodium 40 mg PO BID 07/22/18 [History] Pyridoxine HCl [Vitamin B-6] 100 mg PO DAILY 07/22/18 [History] dilTIAZem HCl [Diltiazem 24Hr ER (Cd)] 360 mg PO DAILY 07/22/18 [History] Cyclobenzaprine [Flexeril] 5 mg PO Q8H PRN 02/05/19 [History] Mag Oxide/D3/Turmeric Rt Xt [Magnesium-Vit D3-Turmeric Cap] 4 cap PO QID [History] Nystatin [Mycostatin] 5 ml PO QID PRN 02/05/19 [History] Polyethylene Glycol 3350 [MiraLAX] 1 pack PO BID 02/05/19 [History] Sennosides/Docusate Sodium [Senna Plus Tablet] 2 tab PO BID 02/05/19 [History] Albuterol/Ipratropium [DuoNeb 3.0-0.5 MG/3 ML] 3 ml INH Q6H PRN 02/06/19 [ History] Metoprolol Tartrate 150 mg PO BID 02/06/19 [History] Potassium Chloride [Klor-Con] 20 meq PO BID 02/06/19 [History] Prochlorperazine [Compazine] 10 mg PO Q6H PRN 02/06/19 [History] EPINEPHrine [Epipen] 1 injection IM ASDIRECTED PRN 04/05/19 [History] Folic Acid 1 mg PO DAILY 04/05/19 [History] HYDROmorphone [Dilaudid] 8 mg PO Q3H PRN 04/05/19 [History] Lidocaine 5% [Lidoderm 5%] 2 patch TD Q12H 04/05/19 [History] Ranitidine [Zantac] 150 mg pe PO ASDIRECTED PRN 04/05/19 [History] dexAMETHasone [Dexamethasone] 4 mg PO ASDIRECTED 04/05/19 [History] diphenhydrAMINE [Benadryl] 50 mg PO ASDIRECTED PRN 04/05/19 [History] oxyCODONE ER [OxyCONTIN] 20 mg PO Q12H 04/05/19 [History] oxyCODONE HCl [Oxycodone HCl ER] 80 mg PO Q12H 04/05/19 [History] predniSONE [Prednisone] 50 mg PO ASDIRECTED PRN 04/05/19 [History] Past Medical History HEENT History: Reports: Impaired Vision Other HEENT History: tonsillectomy and polops removed from nares bilterally Cardiovascular History: Reports: Arrhythmia, Blood Clots/VTE/DVT, High Cholesterol, Hypertension Respiratory History: Reports: Bronchitis, Recurrent, Pneumonia, Recurrent, Other (See Below) Other Respiratory History: uses home nebulizer prn Gastrointestinal History: Reports: Chronic Constipation, GERD, Hemorrhoids Genitourinary History: Reports: Prostate Disorder, Renal Calculus, UTI, Recurrent, Other (See Below) Other Genitourinary History: self caths self every 4th day due previous surgeries Musculoskeletal History: Reports: Gout Neurological History: Reports: None, Neuropathy, Peripheral Endocrine/Metabolic History: Reports: Diabetes, Type II, Obesity/BMI 30+ Oncologic (Cancer) History: Reports: Lung, Metastatic, Renal, Other (See Below) Other Oncologic History: bladder cancer - Infectious Disease History Infectious Disease History: Reports: Chicken Pox, Measles - Past Surgical History Male Surgical History: Reports: Lithotripsy (ESWL), TURP-Transurethral Resection of Prostate Neurological Surgical History: Reports: None Musculoskeletal Surgical History: Reports: None Social & Family History - Family History Family Medical History: Noncontributory Cardiac: Reports: Hypertension, [place], Stent, Other (See Below) Other Cardiac Family History: sister had cabg Respiratory: Reports: COPD Neurological: Reports: CVA Endocrine/Metabolic: Reports: Diabetes, type II Oncologic: Reports: Lung Other Oncologic Family History: sister had lung ca - Caffeine Use Caffeine Use: Reports: None - Living Situation & Occupation Living situation: Reports: , with Family Occupation: Retired ED ROS GENERAL - Review of Systems Review Of Systems: ROS reveals no pertinent complaints other than HPI. ED EXAM, GENERAL - Physical Exam Exam: See Below Exam Limited By: No Limitations General Appearance: Alert, Mild Distress (due to pain), Other (Chronically ill appearing) Throat/Mouth: Normal Inspection, Normal Voice, No Airway Compromise Head: Atraumatic, Normocephalic Neck: Normal Inspection Respiratory/Chest: No Respiratory Distress, Lungs Clear, No Accessory Muscle Use , Decreased Breath Sounds Cardiovascular: Regular Rate, Rhythm GI/Abdominal: Normal Bowel Sounds, Soft, Non-Tender Back Exam: No: CVA Tenderness (L), CVA Tenderness (R), Vertebral Tenderness Extremities: Limited Range of Motion (Hips, Rt>Left). No: Increased Warmth, Redness Neurological: Alert, Oriented, No Motor/Sensory Deficits Psychiatric: Normal Mood Skin Exam: Warm, Dry, Intact, Normal Color, No Rash Course - Vital Signs Last Recorded V/S: Last Vital Signs Temp 96.7 F 04/05/19 10:16 Pulse 96 04/05/19 11:22 Resp 14 04/05/19 10:16 BP 114/71 04/05/19 11:22 Pulse Ox 98 04/05/19 11:22 - Orders/Labs/Meds Orders: Active Orders 24 hr Category Date Time Status Implanted Port Access [RC] ONETIME Care 04/05/19 09:55 Active Femur Min 2V Rt [CR] Stat Exams 04/05/19 10:45 Taken Hip Min 2V or 3V Rt [CR] Stat Exams 04/05/19 10:45 Taken Meds: Medications Discontinued Medications Generic Name Dose Route Start Last Admin Trade Name Tiny PRN Reason Stop Dose Admin Lidocaine HCl 15 gm 04/05/19 10:44 04/05/19 10:54 Lidocaine 5% TOP 04/05/19 10:45 15 gm ONETIME ONE Administration Morphine Sulfate 8 mg 04/05/19 09:57 04/05/19 10:06 Morphine IVPUSH 04/05/19 09:58 8 mg ONETIME ONE Administration Morphine Sulfate Confirm 04/05/19 10:01 04/05/19 10:06 Morphine Administered 04/05/19 10:02 Not Given Dose 8 mg .ROUTE .STK-MED ONE Morphine Sulfate 8 mg 04/05/19 10:43 04/05/19 10:54 Morphine IVPUSH 04/05/19 10:44 8 mg ONETIME ONE Administration Ondansetron HCl 4 mg 04/05/19 09:57 04/05/19 10:06 Zofran IV 04/05/19 09:58 4 mg ONETIME ONE Administration Ondansetron HCl 4 mg 04/05/19 10:44 04/05/19 10:53 Zofran IV 04/05/19 10:45 4 mg ONETIME ONE Administration - Radiology Interpretation Free Text/Narrative:: [facility] Final Radiology Report Call: [phone] assistance Online chat: [email or web address] Name: JIM DUVAL Age: 68Years M Date: 04/05/2019 SSN: -- : [id number] Study: XR FEMUR 2 VIEWS RIGHT Requesting Physician: BRIAN DEMPSEY Images: 2 Addl Studies: Provided Clinical History: Contrast: Contrast Medium: Contrast Amount: Contrast Method: Page 1 of 2 EXAM: XR Right Knee EXAM DATE/TIME: 04/05/2019 11:22 AM CLINICAL HISTORY: 68 years old, male; Hip and thigh; Right; Patient HX: Severe RT hip/thigh pain, bladder CA with bone mets imaging obtained portably TECHNIQUE: Imaging protocol: XR Right knee. Views: 1 or 2 views. COMPARISON: No relevant prior studies available. FINDINGS: Limitations: The AP and lateral images are obliqued, which can limit evaluation. Bones/joints: No acute fracture. No dislocation. Bones are diffusely osteopenic. Soft tissues: No soft tissue swelling. No radiopaque foreign body. Vasculature: Atherosclerotic changes in the visualized arteries. IMPRESSION: 1. No acute fracture. Followup imaging recommended in 7-14 days if clinical concern for fracture persists. 2. Incidental/nonacute findings are listed in the report. Thank you for allowing us to participate in the care of your patient. [facility] Final Radiology Report Call: [phone] assistance Online chat: [email or web address] Name: JIM DUVAL Age: 68Years M Date: 04/05/2019 SSN: -- : [id number] Study: XR FEMUR 2 VIEWS RIGHT Requesting Physician: BRIAN DEMPSEY Images: 2 Addl Studies: Provided Clinical History: Contrast: Contrast Medium: Contrast Amount: Contrast Method: Page 1 of 2 EXAM: XR Right Knee EXAM DATE/TIME: 04/05/2019 11:22 AM CLINICAL HISTORY: 68 years old, male; Hip and thigh; Right; Patient HX: Severe RT hip/thigh pain, bladder CA with bone mets imaging obtained portably TECHNIQUE: Imaging protocol: XR Right knee. Views: 1 or 2 views. COMPARISON: No relevant prior studies available. FINDINGS: Limitations: The AP and lateral images are obliqued, which can limit evaluation. Bones/joints: No acute fracture. No dislocation. Bones are diffusely osteopenic. Soft tissues: No soft tissue swelling. No radiopaque foreign body. Vasculature: Atherosclerotic changes in the visualized arteries. IMPRESSION: 1. No acute fracture. Followup imaging recommended in 7-14 days if clinical concern for fracture persists. 2. Incidental/nonacute findings are listed in the report. Thank you for allowing us to participate in the care of your patient. Departure - Departure Time of Disposition: 12:24 (admitted to Dr. Del Rosario) Disposition: Refer to Observation Condition: Poor Clinical Impression: Chronic intractable pain, History of cancer metastatic to bone - Discharge Information *PRESCRIPTION DRUG MONITORING PROGRAM REVIEWED*: No *COPY OF PRESCRIPTION DRUG MONITORING REPORT IN PATIENT DON: No Referrals: PCP,None [Primary Care Provider] - Forms: ED Department Discharge - My Orders Last 24 Hours: My Active Orders 04/05/19 09:55 Implanted Port Access [RC] ONETIME 04/05/19 10:45 Femur Min 2V Rt [CR] Stat Hip Min 2V or 3V Rt [CR] Stat - Assessment/Plan Last 24 Hours: My Active Orders 04/05/19 09:55 Implanted Port Access [RC] ONETIME 04/05/19 10:45 Femur Min 2V Rt [CR] Stat Hip Min 2V or 3V Rt [CR] Stat I have read and agree with the documentation that has been completed regarding this visit. By signing this record, I attest that the documentation was completed in my physical presence and is an accurate record of the encounter.
[2019-04-05] MEDS ORDERED: Sodium Chloride 0.9% 10 ML Syringe FLUSH PRN (15:54)
[2019-04-05] MEDS ORDERED: Albuterol/Ipratropium 3.0-0.5 MG/3 ML Neb Soln INH PRN (15:57)
[2019-04-05] MEDS ORDERED: RANITIDINE 150 MG PO PRN (15:57)
[2019-04-05] MEDS ORDERED: Polyethylene Glycol 3350 Powder 17 GM Packet PO PRN (15:57)
[2019-04-05] MEDS ORDERED: oxyCODONE ER 20 MG TAB.ER PO SCH ×2 (16:00→21:00)
[2019-04-05] MEDS: Morphine 4 MG/ML Syringe IVPUSH PRN ×3 (16:26→21:34)
--- NOTE | 2019-04-05 16:39 | PCM.HP ---
H&P History of Present Illness - General Date of Service: 04/05/19 Admit Problem/Dx: Admission Diagnosis/Problem Admission Diagnosis/Problem Back pain Source of Information: Patient, Family History Limitations: Reports: No Limitations - History of Present Illness Initial Comments - Free Text/Narative: 68 yo M with PMH of asthma, afib and metastatic (mets to femoral bone and lungs ) urothelial cancer who presents with flare up of chronic right thigh pain. Patient receives pain mgt with palliative care. Was admitted in early February for pain management and is on a regimen of 100 mg of oxycontin q12 hrs, prn dilaudid 8 mg q3 h. He noticed acute worsening of pain in the right thigh this morning, not controlled with oral pain meds at home. Pain was 10/10 in intensity, worse with movement. He is not interested in hospice at this time, but is still thinking about it Code status is DNR-DNI No chest pain, no SOB, no urinary symptoms (dysuria, urgency or frequency), no fever. Right Hip Pain Score (Numeric/FACES): 6 - Related Data Allergies/Adverse Reactions: Allergies Allergy/AdvReac Type Severity Reaction Status Date / Time allopurinol Allergy Rash Verified 04/05/19 10:23 amoxicillin [From Augmentin] Allergy Rash Verified 04/05/19 10:23 clavulanic acid Allergy Rash Verified 04/05/19 10:23 [From Augmentin] levofloxacin Allergy Rash Verified 04/05/19 10:23 nitrofurantoin Allergy Facial Verified 04/05/19 10:23 [From Macrobid] Swelling Xzloktv-Wgy-Lhd Reductase Allergy Muscle Verified 04/05/19 10:23 Inhibitor Aches colchicine Allergy Cannot Uncoded 02/06/19 07:07 Remember iodinated diagnostic agents Allergy Facial Uncoded 02/06/19 07:07 Swelling Home Medications: Home Meds Albuterol/Ipratropium [DuoNeb 3.0-0.5 MG/3 ML] 3 ml INH Q6H PRN 07/19/14 [ History] Acetaminophen [Tylenol] 650 mg PO QID PRN 07/22/18 [History] Aspirin [Adult Low Dose Aspirin EC] 81 mg PO DAILY 07/22/18 [History] Loratadine [Claritin] 10 mg PO DAILY 07/22/18 [History] Montelukast [Singulair] 10 mg PO BEDTIME 07/22/18 [History] Pantoprazole Sodium 40 mg PO BID 07/22/18 [History] Pyridoxine HCl [Vitamin B-6] 100 mg PO DAILY 07/22/18 [History] Cyclobenzaprine [Flexeril] 5 mg PO Q8H PRN 02/05/19 [History] Polyethylene Glycol 3350 [MiraLAX] 1 pack PO BID PRN 02/05/19 [History] Sennosides/Docusate Sodium [Senna Plus Tablet] 2 tab PO BID 02/05/19 [History] Metoprolol Tartrate 150 mg PO BID 02/06/19 [History] Potassium Chloride [Klor-Con] 20 meq PO DAILY 02/06/19 [History] Prochlorperazine [Compazine] 10 mg PO Q6H PRN 02/06/19 [History] Diltiazem HCl [Diltiazem ER] 360 mg PO DAILY 04/05/19 [History] EPINEPHrine [Epipen] 1 injection IM ASDIRECTED PRN 04/05/19 [History] Folic Acid 1 mg PO DAILY 04/05/19 [History] HYDROmorphone [Dilaudid] 8 mg PO Q3H PRN 04/05/19 [History] Lidocaine 5% [Lidoderm 5%] 2 patch TD BEDTIME 04/05/19 [History] Magnesium Oxide 400 mg PO QID 04/05/19 [History] Ondansetron HCl [Ondansetron] 8 mg PO Q8H PRN 04/05/19 [History] Ranitidine [Zantac] 150 mg pe PO ASDIRECTED PRN 04/05/19 [History] diphenhydrAMINE [Benadryl] 50 mg PO ASDIRECTED PRN 04/05/19 [History] hydroCHLOROthiazide [Hydrochlorothiazide] 12.5 mg PO DAILY 04/05/19 [History] metFORMIN [Glucophage] 750 mg PO BIDMEALS 04/05/19 [History] oxyCODONE ER [OxyCONTIN] 100 mg PO Q12H 04/05/19 [History] predniSONE [Prednisone] 50 mg PO ASDIRECTED PRN 04/05/19 [History] Past Medical History HEENT History: Reports: Impaired Vision Other HEENT History: tonsillectomy and polops removed from nares bilterally Cardiovascular History: Reports: Arrhythmia, Blood Clots/VTE/DVT, High Cholesterol, Hypertension Respiratory History: Reports: Bronchitis, Recurrent, Pneumonia, Recurrent, Sleep Apnea Other Respiratory History: uses home nebulizer prn Gastrointestinal History: Reports: Chronic Constipation, GERD, Hemorrhoids Genitourinary History: Reports: Prostate Disorder, Renal Calculus, UTI, Recurrent, Other (See Below) Other Genitourinary History: Self caths self every 4th day due previous surgeries as needed Musculoskeletal History: Reports: Gout Neurological History: Reports: Neuropathy, Peripheral Psychiatric History: Reports: None Endocrine/Metabolic History: Reports: Diabetes, Type II, Obesity/BMI 30+ Hematologic History: Reports: None Immunologic History: Reports: None Oncologic (Cancer) History: Reports: Lung, Metastatic, Renal, Other (See Below) Other Oncologic History: bladder cancer Dermatologic History: Reports: None - Infectious Disease History Infectious Disease History: Reports: Chicken Pox, Measles - Past Surgical History Male Surgical History: Reports: Lithotripsy (ESWL), TURP-Transurethral Resection of Prostate Neurological Surgical History: Reports: None Musculoskeletal Surgical History: Reports: None Social & Family History - Family History Family Medical History: Noncontributory Cardiac: Reports: Hypertension, [place], Stent, Other (See Below) Other Cardiac Family History: sister had cabg Respiratory: Reports: COPD Neurological: Reports: CVA Endocrine/Metabolic: Reports: Diabetes, type II Oncologic: Reports: Lung Other Oncologic Family History: sister had lung ca - Tobacco Use Smoking Status *Q: Never Smoker - Caffeine Use Caffeine Use: Reports: None - Recreational Drug Use Recreational Drug Use: No - Living Situation & Occupation Living situation: Reports: , with Family Occupation: Retired H&P Review of Systems - Review of Systems: Review Of Systems: See Below General: Denies: Fever HEENT: Reports: No Symptoms Pulmonary: Reports: No Symptoms Cardiovascular: Reports: No Symptoms Gastrointestinal: Reports: No Symptoms Genitourinary: Reports: No Symptoms Musculoskeletal: Reports: Leg Pain Skin: Reports: No Symptoms Psychiatric: Reports: No Symptoms Exam - Exam Exam: See Below - Vital Signs Vital Signs: Last Vital Signs Temp 35.8 C 04/05/19 13:28 Pulse 100 04/05/19 13:28 Resp 20 04/05/19 13:28 BP 134/78 04/05/19 13:28 Pulse Ox 92 L 04/05/19 13:28 Weight: 74.843 kg - Exam General: Alert, Oriented HEENT: Conjunctiva Clear Neck: Supple, Trachea Midline Lungs: Clear to Auscultation Cardiovascular: Regular Rate, Regular Rhythm GI/Abdominal Exam: Normal Bowel Sounds Extremities: Other (right thigh tenderness) Problem List Initiated/Reviewed/Updated: Yes Orders Last 24hrs: Active Orders 24 hr Category Date Time Status Patient Status [ADT] Routine ADT 04/05/19 15:54 Active Ambulate [RC] ASDIRECTED Care 04/05/19 15:54 Active Height and Weight [RC] DAILY Care 04/05/19 15:54 Active Implanted Port Access [RC] ONETIME Care 04/05/19 09:55 Active Oxygen Therapy [RC] PRN Care 04/05/19 15:54 Active Peripheral IV Care [RC] . DIRECTED Care 04/05/19 15:54 Active Up With Assistance [RC] ASDIRECTED Care 04/05/19 15:54 Active VTE/DVT Education [RC] PER UNIT ROUTINE Care 04/05/19 15:54 Active Vital Signs [RC] Q4H Care 04/05/19 15:54 Active OT Evaluation and Treatment [CONS] Routine Cons 04/05/19 15:55 Active PT Evaluation and Treatment [CONS] Routine Cons 04/05/19 15:55 Active Regular Diet [DIET] Diet 04/05/19 Breakfast Active Acetaminophen [Tylenol] Med 04/05/19 15:57 Active 650 mg PO QID PRN Albuterol/Ipratropium [DuoNeb 3.0-0.5 MG/3 ML] Med 04/05/19 15:57 Active 3 ml INH Q6H PRN Aspirin [Halfprin] Med 04/06/19 09:00 Active 81 mg PO DAILY Cyclobenzaprine [Flexeril] Med 04/05/19 15:57 Active 5 mg PO Q8H PRN Diltiazem [Cardizem CD] Med 04/06/19 09:00 Active 360 mg PO DAILY Docusate Sodium/Sennosides [Senna Plus] Med 04/05/19 21:00 Active 2 tab PO BID Folic Acid Med 04/06/19 09:00 Active 1 mg PO DAILY HYDROmorphone [Dilaudid] Med 04/05/19 15:57 Active 8 mg PO Q3H PRN Lidocaine 5% [Lidoderm 5%] Med 04/05/19 21:00 Active 0 mg TOP BEDTIME Metoprolol Tartrate [Lopressor] Med 04/05/19 21:00 Active 150 mg PO BID Montelukast [Singulair] Med 04/05/19 21:00 Active 10 mg PO BEDTIME Morphine Med 04/05/19 15:56 Active 4 mg IVPUSH Q2H PRN Ondansetron [Zofran] Med 04/05/19 15:56 Active 4 mg IV Q4H PRN Pantoprazole [ProTONIX] Med 04/05/19 21:00 Active 40 mg PO BID Polyethylene Glycol 3350 [MiraLAX] Med 04/05/19 15:57 Ordered DOSE gm PO BID PRN Ranitidine [Zantac] Med 04/05/19 15:57 Pending 150 mg pe PO ASDIRECTED PRN Remove Patch Med 04/06/19 09:00 Active 1 ea TRDERM DAILY Sodium Chloride 0.9% [Saline Flush] Med 04/05/19 15:54 Active 10 ml FLUSH ASDIRECTED PRN Sodium Chloride 0.9% [Saline Flush] Med 04/05/19 15:54 Ordered 10 ml FLUSH ASDIRECTED PRN Vitamin B6-pyridOXINE Med 04/06/19 09:00 Ordered 100 mg PO DAILY hydroCHLOROthiazide Med 04/06/19 09:00 Active 12.5 mg PO DAILY metFORMIN [Glucophage] Med 04/05/19 18:00 Active 750 mg PO BIDMEALS oxyCODONE ER [OxyCONTIN] Med 04/05/19 16:00 Active 100 mg PO Q12H Peripheral IV Insertion Adult [OM.PC] Routine Oth 04/05/19 15:54 Ordered Saline Lock Insert [OM.PC] Routine Oth 04/05/19 15:54 Ordered Code Status [Resuscitation Status] Routine Resus Stat 04/05/19 15:55 Ordered Medication Orders Acetaminophen (Tylenol) 650 mg PO QID PRN PRN Reason: Pain Albuterol/Ipratropium (Duoneb 3.0-0.5 Mg/3 Ml) 3 ml INH Q6H PRN PRN Reason: Shortness of Breath Aspirin (Halfprin) 81 mg PO DAILY CRIST[facility]BAL Cyclobenzaprine HCl (Flexeril) 5 mg PO Q8H PRN PRN Reason: Spasms Diltiazem HCl (Cardizem Cd) 360 mg PO DAILY COUNT INCLUDES THE [facility] Folic Acid (Folic Acid) 1 mg PO DAILY COUNT INCLUDES THE [facility] Hydrochlorothiazide (Hydrochlorothiazide) 12.5 mg PO DAILY COUNT INCLUDES THE [facility] Hydromorphone HCl (Dilaudid) 8 mg PO Q3H PRN PRN Reason: Pain (moderate 4-6) Lidocaine (Lidoderm 5%) 0 mg TOP BEDTIME COUNT INCLUDES THE [facility] Metformin HCl (Glucophage) 750 mg PO BIDMEALS COUNT INCLUDES THE [facility] Metoprolol Tartrate (Lopressor) 150 mg PO BID COUNT INCLUDES THE [facility] Miscellaneous Information (Remove Patch) 1 ea TRDERM DAILY COUNT INCLUDES THE [facility] Montelukast Sodium (Singulair) 10 mg PO BEDTIME COUNT INCLUDES THE [facility] Morphine Sulfate (Morphine) 4 mg IVPUSH Q2H PRN PRN Reason: Pain (severe 7-10) Last Admin: 04/05/19 16:26 Dose: 4 mg Non-Formulary Medication (Ranitidine [Zantac]) 150 mg pe PO ASDIRECTED PRN PRN Reason: pre-procedure Ondansetron HCl (Zofran) 4 mg IV Q4H PRN PRN Reason: Nausea/Vomiting Oxycodone HCl (Oxycontin) 100 mg PO Q12H COUNT INCLUDES THE [facility] Pantoprazole Sodium (Protonix) 40 mg PO BID COUNT INCLUDES THE [facility] Polyethylene Glycol (Miralax) gm PO BID PRN PRN Reason: Constipation Pyridoxine HCl (Vitamin B6-Pyridoxine) 100 mg PO DAILY COUNT INCLUDES THE [facility] Senna/Docusate Sodium (Senna Plus) 2 tab PO BID COUNT INCLUDES THE [facility] Sodium Chloride (Saline Flush) 10 ml FLUSH ASDIRECTED PRN PRN Reason: Keep Vein Open Sodium Chloride (Saline Flush) 10 ml FLUSH ASDIRECTED PRN PRN Reason: Keep Vein Open Assessment/Plan Comment:: Metastatic urothelial carcinoma with intractable right femoral pain -pain management. -patient is no longer on treatment from cancer after his last cycle of chemo earlier this year. -cs to social work for hospice discussions Hx of Atrial fibrillation -Rate control: continue cardizem -Anticoagulation: no ac due to severe thrombocytopenia Hx of asthma -stable, no SOB -PRN duonebs -continue montelukast DVT ppx SCDs PT/OT No chemoprophylaxis due to thrombocytopenia
[2019-04-05] MEDS: CYCLOBENZAPRINE 5 MG PO PRN (17:43)
[2019-04-05] MEDS: metFORMIN 500 MG Tab PO SCH (17:45)
[2019-04-05] MEDS: Lidocaine 5% 700 MG Patch TOP SCH ×2 (19:29→23:22)
[2019-04-05] MEDS: Sodium Chloride 0.9% 10 ML Syringe FLUSH PRN ×2 (20:35→21:34)
[2019-04-05] MEDS ORDERED: OXYCODONE 20 MG PO SCH (22:00)
[2019-04-05] MEDS ORDERED: PANTOPRAZOLE 40 MG PO ONE (22:15)
[2019-04-05] MEDS: OXYCODONE 80 MG PO SCH (23:10)
[2019-04-05] MEDS: Metoprolol Tartrate 50 MG Tab PO SCH (23:15)
[2019-04-05] MEDS: Montelukast 10 MG Tab PO SCH (23:20)
[2019-04-05] MEDS: Pantoprazole 40 MG Tab.CR PO SCH (23:22)
[2019-04-06] MEDS: OXYCODONE 80 MG PO SCH ×3 (00:29→12:41)
[2019-04-06] MEDS: Sodium Chloride 0.9% 10 ML Syringe FLUSH PRN ×2 (01:09→03:10)
[2019-04-06] MEDS: Morphine 4 MG/ML Syringe IVPUSH PRN ×2 (01:10→03:11)
[2019-04-06] MEDS: CYCLOBENZAPRINE 5 MG PO PRN (03:09)
[2019-04-06] MEDS: Diltiazem 180 MG Cap.CD PO SCH (10:19)
[2019-04-06] MEDS: Hydrochlorothiazide 25 MG Tab PO SCH (10:21)
[2019-04-06] MEDS: Metoprolol Tartrate 50 MG Tab PO SCH ×2 (10:22→21:05)
[2019-04-06] MEDS: Vitamin B6-pyridOXINE 100 MG Tab PO SCH (10:23)
[2019-04-06] MEDS: Aspirin 81 MG Tab.EC PO SCH (10:23)
[2019-04-06] MEDS: Folic Acid 1 MG Tab PO SCH (10:23)
[2019-04-06] MEDS: Pantoprazole 40 MG Tab.CR PO SCH ×2 (10:23→21:07)
[2019-04-06] MEDS: metFORMIN 500 MG Tab PO SCH ×2 (10:24→17:31)
[2019-04-06] MEDS: Remove Patch LIDOCAINE TRDERM SCH (10:32)
[2019-04-06] MEDS: oxyCODONE ER 20 MG TAB.ER PO SCH ×2 (10:36→21:03)
[2019-04-06] MEDS: Cyclobenzaprine 5 MG Tab PO PRN ×2 (10:43→18:58)
--- NOTE | 2019-04-06 12:06 | PCM.PN ---
- General Info Date of Service: 04/06/19 Admission Dx/Problem (Free Text): Admission Diagnosis/Problem Admission Diagnosis/Problem Back pain Subjective Update: I saw and examined the patient at the bedside Still has remarkable pain in the right hip/thigh, severe, worse with movement Received multiple doses of both dilaudid and morphine overnight - Review of Systems General: Reports: Night Sweats HEENT: Reports: No Symptoms Pulmonary: Reports: No Symptoms Cardiovascular: Reports: No Symptoms Gastrointestinal: Reports: No Symptoms Genitourinary: Reports: No Symptoms Musculoskeletal: Reports: Other (right hip pain) Skin: Reports: No Symptoms Neurological: Reports: No Symptoms - Patient Data Vitals - Most Recent: Last Vital Signs Temp 35.9 C 04/06/19 07:58 Pulse 60 04/06/19 10:22 Resp 20 04/06/19 07:58 BP 107/62 04/06/19 10:22 Pulse Ox 98 04/06/19 07:58 Weight - Most Recent: 74.843 kg I&O - Last 24 Hours: Intake & Output 04/05/19 04/06/19 04/06/19 22:59 06:59 14:59 Intake Total 760 250 340 Output Total 450 Balance 310 250 340 Lab Results Last 24 Hours: Laboratory Results - last 24 hr 04/06/19 Range/Units 01:18 POC Glucose 131 H (83-110) mg/dl Med Orders - Current: Current Medications Acetaminophen (Tylenol) 650 mg PO QID PRN PRN Reason: Pain Albuterol/Ipratropium (Duoneb 3.0-0.5 Mg/3 Ml) 3 ml INH Q6H PRN PRN Reason: Shortness of Breath Aspirin (Halfprin) 81 mg PO DAILY [facility] Last Admin: 04/06/19 10:23 Dose: 81 mg Cyclobenzaprine HCl (Flexeril) 5 mg PO Q8HR PRN PRN Reason: Spasms Last Admin: 04/06/19 10:43 Dose: 5 mg Diltiazem HCl (Cardizem Cd) 360 mg PO DAILY [facility] Last Admin: 04/06/19 10:19 Dose: 360 mg Folic Acid (Folic Acid) 1 mg PO DAILY [facility] Last Admin: 04/06/19 10:23 Dose: 1 mg Hydrochlorothiazide (Hydrochlorothiazide) 12.5 mg PO DAILY [facility] Last Admin: 04/06/19 10:21 Dose: 12.5 mg Hydromorphone HCl (Dilaudid) 8 mg PO Q3H PRN PRN Reason: Pain (moderate 4-6) Last Admin: 04/06/19 10:20 Dose: 8 mg Lidocaine (Lidoderm 5%) 0 mg TOP BEDTIME [facility] Last Admin: 04/05/19 23:22 Dose: Not Given Metformin HCl (Glucophage) 750 mg PO BIDMEALS [facility] Last Admin: 04/06/19 10:24 Dose: 750 mg Metoprolol Tartrate (Lopressor) 150 mg PO BID [facility] Last Admin: 04/06/19 10:22 Dose: 150 mg Miscellaneous Information (Remove Patch) 1 ea TRDERM DAILY [facility] Last Admin: 04/06/19 10:32 Dose: 1 ea Montelukast Sodium (Singulair) 10 mg PO BEDTIME [facility] Last Admin: 04/05/19 23:20 Dose: 10 mg Morphine Sulfate (Morphine) 4 mg IVPUSH Q2H PRN PRN Reason: Pain (severe 7-10) Last Admin: 04/06/19 03:11 Dose: 4 mg Ondansetron HCl (Zofran) 4 mg IV Q4H PRN PRN Reason: Nausea/Vomiting Oxycodone HCl (Oxycontin) 120 mg PO Q12HR [facility] Last Admin: 04/06/19 10:36 Dose: 120 mg Pantoprazole Sodium (Protonix) 40 mg PO BID [facility] Last Admin: 04/06/19 10:23 Dose: 40 mg Polyethylene Glycol (Miralax) 17 gm PO BID PRN PRN Reason: Constipation Pyridoxine HCl (Vitamin B6-Pyridoxine) 100 mg PO DAILY [facility] Last Admin: 04/06/19 10:23 Dose: 100 mg Senna/Docusate Sodium (Senna Plus) 2 tab PO BID [facility] Last Admin: 04/06/19 10:23 Dose: 2 tab Sodium Chloride (Saline Flush) 10 ml FLUSH ASDIRECTED PRN PRN Reason: Keep Vein Open Last Admin: 04/06/19 03:10 Dose: 10 ml Discontinued Medications Cyclobenzaprine HCl (Flexeril) 5 mg PO Q8H PRN PRN Reason: Spasms Last Admin: 04/06/19 03:09 Dose: 5 mg Lidocaine HCl (Lidocaine 5%) 15 gm TOP ONETIME ONE Stop: 06/09/19 10:45 Last Admin: 04/05/19 10:54 Dose: 15 gm Morphine Sulfate (Morphine) 8 mg IVPUSH ONETIME ONE Stop: 04/05/19 09:58 Last Admin: 04/05/19 10:06 Dose: 8 mg Morphine Sulfate (Morphine) Confirm Administered Dose 8 mg .ROUTE .STK-MED ONE Stop: 04/05/19 10:02 Last Admin: 04/05/19 10:06 Dose: Not Given Morphine Sulfate (Morphine) 8 mg IVPUSH ONETIME ONE Stop: 04/05/19 10:44 Last Admin: 04/05/19 10:54 Dose: 8 mg Morphine Sulfate (Morphine) 4 mg IVPUSH ONETIME ONE Stop: 04/05/19 20:20 Last Admin: 04/05/19 20:36 Dose: 4 mg Non-Formulary Medication (Ranitidine [Zantac]) 150 mg pe PO ASDIRECTED PRN PRN Reason: pre-procedure Oxycodone Er 80 Mg (Tab.Er Own Med) 1 each PO Q12H [facility] Last Admin: 04/05/19 23:10 Dose: 1 each Oxycodone Er 80 Mg (Tab.Er Own Med) 1 each PO Q12H [facility] Last Admin: 04/06/19 00:29 Dose: Not Given Ondansetron HCl (Zofran) 4 mg IV ONETIME ONE Stop: 04/05/19 09:58 Last Admin: 04/05/19 10:06 Dose: 4 mg Ondansetron HCl (Zofran) 4 mg IV ONETIME ONE Stop: 04/05/19 10:45 Last Admin: 04/05/19 10:53 Dose: 4 mg Oxycodone HCl (Oxycontin) 100 mg PO Q12H [facility] Last Admin: 04/05/19 17:36 Dose: Not Given Oxycodone HCl (Oxycontin) 100 mg PO Q12H [facility] Last Admin: 04/06/19 00:28 Dose: Not Given Oxycodone HCl (Oxycontin) 20 mg PO Q12H [facility] Last Admin: 04/05/19 23:14 Dose: 20 mg Pantoprazole Sodium (Protonix) 40 mg PO ONETIME ONE Stop: 04/05/19 22:16 Last Admin: 04/05/19 23:19 Dose: 40 mg Sodium Chloride (Saline Flush) 10 ml FLUSH ASDIRECTED PRN PRN Reason: Keep Vein Open - Exam General: Alert, Oriented HEENT: Pupils Equal Neck: Supple Lungs: Clear to Auscultation Cardiovascular: Regular Rate, Regular Rhythm GI/Abdominal Exam: Normal Bowel Sounds, Soft, Non-Tender Extremities: Other (right hip tenderness) - Problem List Review Problem List Initiated/Reviewed/Updated: Yes - My Orders Last 24 Hours: My Active Orders 04/05/19 15:54 Patient Status [ADT] Routine Ambulate [RC] ASDIRECTED Height and Weight [RC] 06 Oxygen Therapy [RC] .PRN Peripheral IV Care [RC] 08,20 Up With Assistance [RC] ASDIRECTED VTE/DVT Education [RC] , Vital Signs [RC] 00,04,08,12,16,20 Sodium Chloride 0.9% [Saline Flush] 10 ml FLUSH ASDIRECTED PRN Peripheral IV Insertion Adult [OM.PC] Routine Saline Lock Insert [OM.PC] Routine 04/05/19 15:55 OT Evaluation and Treatment [CONS] Routine PT Evaluation and Treatment [CONS] Routine Code Status [Resuscitation Status] Routine 04/05/19 15:56 Morphine 4 mg IVPUSH Q2H PRN Ondansetron [Zofran] 4 mg IV Q4H PRN 04/05/19 15:57 Acetaminophen [Tylenol] 650 mg PO QID PRN Albuterol/Ipratropium [DuoNeb 3.0-0.5 MG/3 ML] 3 ml INH Q6H PRN HYDROmorphone [Dilaudid] 8 mg PO Q3H PRN Polyethylene Glycol 3350 [MiraLAX] 17 gm PO BID PRN 04/05/19 18:00 metFORMIN [Glucophage] 750 mg PO BIDMEALS 04/05/19 21:00 Docusate Sodium/Sennosides [Senna Plus] 2 tab PO BID Lidocaine 5% [Lidoderm 5%] 0 mg TOP BEDTIME Metoprolol Tartrate [Lopressor] 150 mg PO BID Montelukast [Singulair] 10 mg PO BEDTIME Pantoprazole [ProTONIX] 40 mg PO BID 04/06/19 09:00 Aspirin [Halfprin] 81 mg PO DAILY Diltiazem [Cardizem CD] 360 mg PO DAILY Folic Acid 1 mg PO DAILY Remove Patch 1 ea TRDERM DAILY Vitamin B6-pyridOXINE 100 mg PO DAILY hydroCHLOROthiazide 12.5 mg PO DAILY 04/06/19 09:22 Patient Status [ADT] Routine 04/06/19 09:32 oxyCODONE ER [OxyCONTIN] 120 mg PO Q12HR 04/06/19 09:45 Cyclobenzaprine [Flexeril] 5 mg PO Q8HR PRN - Plan Plan:: Metastatic urothelial carcinoma with intractable right femoral pain -pain management. increase oxycontin to 120 mg bid -patient is no longer on treatment from cancer after his last cycle of chemo earlier this year. -cs to social work for hospice discussions Hx of Atrial fibrillation -Rate control: continue cardizem -Anticoagulation: no ac due to severe thrombocytopenia Hx of asthma -stable, no SOB -PRN duonebs -continue montelukast DVT ppx SCDs PT/OT No chemoprophylaxis due to thrombocytopenia
[2019-04-06] MEDS: Acetaminophen 325 MG Tab PO PRN (18:58)
[2019-04-06] MEDS: Lidocaine 5% 700 MG Patch TOP SCH (21:02)
[2019-04-06] MEDS: Montelukast 10 MG Tab PO SCH (21:05)
[2019-04-07] MEDS: Cyclobenzaprine 5 MG Tab PO PRN ×2 (06:05→14:32)
[2019-04-07] MEDS: Diltiazem 180 MG Cap.CD PO SCH (08:38)
[2019-04-07] MEDS: Aspirin 81 MG Tab.EC PO SCH (08:39)
[2019-04-07] MEDS: Folic Acid 1 MG Tab PO SCH (08:39)
[2019-04-07] MEDS: Pantoprazole 40 MG Tab.CR PO SCH ×2 (08:40→21:11)
[2019-04-07] MEDS: Vitamin B6-pyridOXINE 100 MG Tab PO SCH (08:40)
[2019-04-07] MEDS: Hydrochlorothiazide 25 MG Tab PO SCH (08:42)
[2019-04-07] MEDS: metFORMIN 500 MG Tab PO SCH ×2 (08:44→17:25)
[2019-04-07] MEDS: Metoprolol Tartrate 50 MG Tab PO SCH ×2 (09:41→21:05)
[2019-04-07] MEDS: oxyCODONE ER 20 MG TAB.ER PO SCH ×2 (09:43→21:02)
[2019-04-07] MEDS: Remove Patch LIDOCAINE TRDERM SCH (09:45)
--- NOTE | 2019-04-07 10:32 | PCM.PN ---
- General Info Date of Service: 04/07/19 Admission Dx/Problem (Free Text): Admission Diagnosis/Problem Admission Diagnosis/Problem Back pain Subjective Update: I saw and examined the patient at the bedside Overnight, pain is much better controlled. - Review of Systems General: Reports: No Symptoms HEENT: Reports: No Symptoms Pulmonary: Reports: No Symptoms Cardiovascular: Reports: No Symptoms Gastrointestinal: Reports: No Symptoms Genitourinary: Reports: No Symptoms Musculoskeletal: Reports: Other (right thigh pain) Skin: Reports: No Symptoms Neurological: Reports: No Symptoms - Patient Data Vitals - Most Recent: Last Vital Signs Temp 36.7 C 04/07/19 07:31 Pulse 76 04/07/19 09:41 Resp 16 04/07/19 07:31 BP 95/58 L 04/07/19 09:41 Pulse Ox 97 04/07/19 07:31 Weight - Most Recent: 74.843 kg I&O - Last 24 Hours: Intake & Output 04/06/19 04/07/19 04/07/19 22:59 06:59 14:59 Intake Total 1040 300 910 Output Total 500 Balance 540 300 910 Med Orders - Current: Current Medications Acetaminophen (Tylenol) 650 mg PO QID PRN PRN Reason: Pain (mild 1-3) Last Admin: 04/06/19 18:58 Dose: 650 mg Albuterol/Ipratropium (Duoneb 3.0-0.5 Mg/3 Ml) 3 ml INH Q6H PRN PRN Reason: Shortness of Breath Aspirin (Halfprin) 81 mg PO DAILY [facility] Last Admin: 04/07/19 08:39 Dose: 81 mg Cyclobenzaprine HCl (Flexeril) 5 mg PO Q8HR PRN PRN Reason: Spasms Last Admin: 04/07/19 06:05 Dose: 5 mg Diltiazem HCl (Cardizem Cd) 360 mg PO DAILY [facility] Last Admin: 04/07/19 08:38 Dose: 360 mg Folic Acid (Folic Acid) 1 mg PO DAILY [facility] Last Admin: 04/07/19 08:39 Dose: 1 mg Hydrochlorothiazide (Hydrochlorothiazide) 12.5 mg PO DAILY [facility] Last Admin: 04/07/19 08:42 Dose: 12.5 mg Hydromorphone HCl (Dilaudid) 8 mg PO Q3H PRN PRN Reason: Pain (moderate 4-6) Last Admin: 04/07/19 06:04 Dose: 8 mg Lidocaine (Lidoderm 5%) 0 mg TOP BEDTIME [facility] Last Admin: 04/06/19 21:02 Dose: 1,400 mg Metformin HCl (Glucophage) 750 mg PO BIDMEALS [facility] Last Admin: 04/07/19 08:44 Dose: 750 mg Metoprolol Tartrate (Lopressor) 150 mg PO BID [facility] Last Admin: 04/07/19 09:41 Dose: 150 mg Miscellaneous Information (Remove Patch) 1 ea TRDERM DAILY [facility] Last Admin: 04/07/19 09:45 Dose: 1 ea Montelukast Sodium (Singulair) 10 mg PO BEDTIME [facility] Last Admin: 04/06/19 21:05 Dose: 10 mg Morphine Sulfate (Morphine) 4 mg IVPUSH Q2H PRN PRN Reason: Pain (severe 7-10) Last Admin: 04/06/19 03:11 Dose: 4 mg Ondansetron HCl (Zofran) 4 mg IV Q4H PRN PRN Reason: Nausea/Vomiting Oxycodone HCl (Oxycontin) 120 mg PO Q12HR [facility] Last Admin: 04/07/19 09:43 Dose: 120 mg Pantoprazole Sodium (Protonix) 40 mg PO BID [facility] Last Admin: 04/07/19 08:40 Dose: 40 mg Pain Relief Liniment (Own Med) 1 each TOP QID PRN PRN Reason: Pain Polyethylene Glycol (Miralax) 17 gm PO BID PRN PRN Reason: Constipation Pyridoxine HCl (Vitamin B6-Pyridoxine) 100 mg PO DAILY [facility] Last Admin: 04/07/19 08:40 Dose: 100 mg Senna/Docusate Sodium (Senna Plus) 2 tab PO BID [facility] Last Admin: 04/07/19 08:39 Dose: 2 tab Sodium Chloride (Saline Flush) 10 ml FLUSH ASDIRECTED PRN PRN Reason: Keep Vein Open Last Admin: 04/06/19 03:10 Dose: 10 ml Discontinued Medications Cyclobenzaprine HCl (Flexeril) 5 mg PO Q8H PRN PRN Reason: Spasms Last Admin: 04/06/19 03:09 Dose: 5 mg Lidocaine HCl (Lidocaine 5%) 15 gm TOP ONETIME ONE Stop: 04/05/19 10:45 Last Admin: 04/05/19 10:54 Dose: 15 gm Morphine Sulfate (Morphine) 8 mg IVPUSH ONETIME ONE Stop: 04/05/19 09:58 Last Admin: 04/05/19 10:06 Dose: 8 mg Morphine Sulfate (Morphine) Confirm Administered Dose 8 mg .ROUTE .STK-MED ONE Stop: 04/05/19 10:02 Last Admin: 04/05/19 10:06 Dose: Not Given Morphine Sulfate (Morphine) 8 mg IVPUSH ONETIME ONE Stop: 04/05/19 10:44 Last Admin: 04/05/19 10:54 Dose: 8 mg Morphine Sulfate (Morphine) 4 mg IVPUSH ONETIME ONE Stop: 04/05/19 20:20 Last Admin: 04/05/19 20:36 Dose: 4 mg Non-Formulary Medication (Ranitidine [Zantac]) 150 mg pe PO ASDIRECTED PRN PRN Reason: pre-procedure Oxycodone Er 80 Mg (Tab.Er Own Med) 1 each PO Q12H [facility] Last Admin: 04/06/19 12:40 Dose: Not Given Oxycodone Er 80 Mg (Tab.Er Own Med) 1 each PO Q12H [facility] Last Admin: 04/06/19 12:41 Dose: Not Given Ondansetron HCl (Zofran) 4 mg IV ONETIME ONE Stop: 04/05/19 09:58 Last Admin: 04/05/19 10:06 Dose: 4 mg Ondansetron HCl (Zofran) 4 mg IV ONETIME ONE Stop: 04/05/19 10:45 Last Admin: 04/05/19 10:53 Dose: 4 mg Oxycodone HCl (Oxycontin) 100 mg PO Q12H [facility] Last Admin: 04/05/19 17:36 Dose: Not Given Oxycodone HCl (Oxycontin) 100 mg PO Q12H [facility] Last Admin: 04/06/19 00:28 Dose: Not Given Oxycodone HCl (Oxycontin) 20 mg PO Q12H [facility] Last Admin: 04/05/19 23:14 Dose: 20 mg Pantoprazole Sodium (Protonix) 40 mg PO ONETIME ONE Stop: 04/05/19 22:16 Last Admin: 04/05/19 23:19 Dose: 40 mg Sodium Chloride (Saline Flush) 10 ml FLUSH ASDIRECTED PRN PRN Reason: Keep Vein Open - Exam General: Alert, Oriented HEENT: Pupils Equal Neck: Supple Lungs: Clear to Auscultation Cardiovascular: Regular Rate, Regular Rhythm GI/Abdominal Exam: Normal Bowel Sounds Extremities: Leg Pain - Problem List Review Problem List Initiated/Reviewed/Updated: Yes - My Orders Last 24 Hours: My Active Orders 04/06/19 09:32 oxyCODONE ER [OxyCONTIN] 120 mg PO Q12HR 04/06/19 09:45 Cyclobenzaprine [Flexeril] 5 mg PO Q8HR PRN 04/06/19 14:17 Patient's Own Medication [Ptom] 1 each TOP QID PRN - Plan Plan:: Metastatic urothelial carcinoma with intractable right femoral pain -pain management. we increased oxycontin to 120 mg bid -PT/OT today with anticipatory pain therapy before the session Hx of Atrial fibrillation -Rate control: continue cardizem -Anticoagulation: no ac due to severe thrombocytopenia Hx of asthma -stable, no SOB -PRN duonebs -continue montelukast DVT ppx SCDs PT/OT No chemoprophylaxis due to thrombocytopenia
[2019-04-07] MEDS: Acetaminophen 325 MG Tab PO PRN (11:39)
[2019-04-07] MEDS: Lidocaine 5% 700 MG Patch TOP SCH (21:05)
[2019-04-07] MEDS: Montelukast 10 MG Tab PO SCH (21:11)
[2019-04-08] MEDS: Cyclobenzaprine 5 MG Tab PO PRN ×2 (07:34→17:30)
[2019-04-08] MEDS: [UNRECOGNIZED DRUG - OTHER] TOP PRN ×2 (07:37→22:16)
[2019-04-08] MEDS: oxyCODONE ER 20 MG TAB.ER PO SCH ×2 (08:14→20:59)
[2019-04-08] MEDS: Folic Acid 1 MG Tab PO SCH (08:18)
[2019-04-08] MEDS: Metoprolol Tartrate 50 MG Tab PO SCH ×2 (08:18→21:02)
[2019-04-08] MEDS: Aspirin 81 MG Tab.EC PO SCH (08:19)
[2019-04-08] MEDS: Diltiazem 180 MG Cap.CD PO SCH (08:19)
[2019-04-08] MEDS: metFORMIN 500 MG Tab PO SCH ×2 (08:21→17:24)
[2019-04-08] MEDS: Hydrochlorothiazide 25 MG Tab PO SCH (08:23)
[2019-04-08] MEDS: Pantoprazole 40 MG Tab.CR PO SCH ×2 (08:23→21:02)
[2019-04-08] MEDS: Vitamin B6-pyridOXINE 100 MG Tab PO SCH (08:23)
[2019-04-08] MEDS: Acetaminophen 325 MG Tab PO PRN (09:11)
[2019-04-08] MEDS: Remove Patch LIDOCAINE TRDERM SCH (09:21)
[2019-04-08] MEDS: Morphine 4 MG/ML Syringe IVPUSH PRN ×2 (10:05→21:36)
[2019-04-08] MEDS ORDERED: Lactulose Soln 10 GM/15 ML 30 ML UD Cup PO ONE (10:22)
--- NOTE | 2019-04-08 10:26 | PCM.PN ---
- General Info Date of Service: 04/08/19 Admission Dx/Problem (Free Text): Admission Diagnosis/Problem Admission Diagnosis/Problem Right thigh pain Subjective Update: I saw and examined the patient at the bedside Needed additional PRN pain meds this morning New right knee pain and swelling Working with PT/OT with some improvement in mobility with assistance No BMs since admission, on large doses of opiates - Review of Systems General: Reports: No Symptoms HEENT: Reports: No Symptoms Pulmonary: Reports: No Symptoms Cardiovascular: Reports: No Symptoms Gastrointestinal: Reports: No Symptoms Genitourinary: Reports: No Symptoms Musculoskeletal: Reports: Other (right knee swelling) Skin: Reports: No Symptoms Neurological: Reports: No Symptoms - Patient Data Vitals - Most Recent: Last Vital Signs Temp 36.4 C 04/08/19 07:53 Pulse 90 04/08/19 08:18 Resp 18 04/08/19 07:53 BP 112/63 04/08/19 08:18 Pulse Ox 96 04/08/19 07:53 Weight - Most Recent: 74.843 kg I&O - Last 24 Hours: Intake & Output 04/07/19 04/08/19 04/08/19 22:59 06:59 14:59 Intake Total 240 750 Output Total 350 Balance 240 -350 750 Med Orders - Current: Current Medications Acetaminophen (Tylenol) 650 mg PO QID PRN PRN Reason: Pain (mild 1-3) Last Admin: 04/08/19 09:11 Dose: 650 mg Albuterol/Ipratropium (Duoneb 3.0-0.5 Mg/3 Ml) 3 ml INH Q6H PRN PRN Reason: Shortness of Breath Aspirin (Halfprin) 81 mg PO DAILY [facility] Last Admin: 04/08/19 08:19 Dose: 81 mg Cyclobenzaprine HCl (Flexeril) 5 mg PO Q8HR PRN PRN Reason: Spasms Last Admin: 04/08/19 07:34 Dose: 5 mg Diltiazem HCl (Cardizem Cd) 360 mg PO DAILY [facility] Last Admin: 04/08/19 08:19 Dose: 360 mg Folic Acid (Folic Acid) 1 mg PO DAILY [facility] Last Admin: 04/08/19 08:18 Dose: 1 mg Hydrochlorothiazide (Hydrochlorothiazide) 12.5 mg PO DAILY [facility] Last Admin: 04/08/19 08:23 Dose: 12.5 mg Hydromorphone HCl (Dilaudid) 8 mg PO Q3H PRN PRN Reason: Pain (moderate 4-6) Last Admin: 04/08/19 07:34 Dose: 8 mg Lidocaine (Lidoderm 5%) 0 mg TOP BEDTIME [facility] Last Admin: 04/07/19 21:05 Dose: 1,400 mg Metformin HCl (Glucophage) 750 mg PO BIDMEALS [facility] Last Admin: 04/08/19 08:21 Dose: 750 mg Metoprolol Tartrate (Lopressor) 150 mg PO BID [facility] Last Admin: 04/08/19 08:18 Dose: 150 mg Miscellaneous Information (Remove Patch) 1 ea TRDERM DAILY [facility] Last Admin: 04/08/19 09:21 Dose: Not Given Montelukast Sodium (Singulair) 10 mg PO BEDTIME [facility] Last Admin: 04/07/19 21:11 Dose: 10 mg Morphine Sulfate (Morphine) 4 mg IVPUSH Q2H PRN PRN Reason: Pain (severe 7-10) Last Admin: 04/08/19 10:05 Dose: 4 mg Ondansetron HCl (Zofran) 4 mg IV Q4H PRN PRN Reason: Nausea/Vomiting Oxycodone HCl (Oxycontin) 120 mg PO Q12HR [facility] Last Admin: 04/08/19 08:14 Dose: 120 mg Pantoprazole Sodium (Protonix) 40 mg PO BID [facility] Last Admin: 04/08/19 08:23 Dose: 40 mg Pain Relief Liniment (Own Med) 1 each TOP QID PRN PRN Reason: Pain Last Admin: 04/08/19 07:37 Dose: 1 each Polyethylene Glycol (Miralax) 17 gm PO BID PRN PRN Reason: Constipation Pyridoxine HCl (Vitamin B6-Pyridoxine) 100 mg PO DAILY [facility] Last Admin: 04/08/19 08:23 Dose: 100 mg Senna/Docusate Sodium (Senna Plus) 2 tab PO BID [facility] Last Admin: 04/08/19 08:19 Dose: 2 tab Sodium Chloride (Saline Flush) 10 ml FLUSH ASDIRECTED PRN PRN Reason: Keep Vein Open Last Admin: 04/06/19 03:10 Dose: 10 ml Discontinued Medications Cyclobenzaprine HCl (Flexeril) 5 mg PO Q8H PRN PRN Reason: Spasms Last Admin: 04/06/19 03:09 Dose: 5 mg Lidocaine HCl (Lidocaine 5%) 15 gm TOP ONETIME ONE Stop: 04/05/19 10:45 Last Admin: 04/05/19 10:54 Dose: 15 gm Morphine Sulfate (Morphine) 8 mg IVPUSH ONETIME ONE Stop: 04/05/19 09:58 Last Admin: 04/05/19 10:06 Dose: 8 mg Morphine Sulfate (Morphine) Confirm Administered Dose 8 mg .ROUTE .STK-MED ONE Stop: 04/05/19 10:02 Last Admin: 04/05/19 10:06 Dose: Not Given Morphine Sulfate (Morphine) 8 mg IVPUSH ONETIME ONE Stop: 04/05/19 10:44 Last Admin: 04/05/19 10:54 Dose: 8 mg Morphine Sulfate (Morphine) 4 mg IVPUSH ONETIME ONE Stop: 04/05/19 20:20 Last Admin: 04/05/19 20:36 Dose: 4 mg Non-Formulary Medication (Ranitidine [Zantac]) 150 mg pe PO ASDIRECTED PRN PRN Reason: pre-procedure Oxycodone Er 80 Mg (Tab.Er Own Med) 1 each PO Q12H [facility] Last Admin: 04/06/19 12:40 Dose: Not Given Oxycodone Er 80 Mg (Tab.Er Own Med) 1 each PO Q12H [facility] Last Admin: 04/06/19 12:41 Dose: Not Given Ondansetron HCl (Zofran) 4 mg IV ONETIME ONE Stop: 04/05/19 09:58 Last Admin: 04/05/19 10:06 Dose: 4 mg Ondansetron HCl (Zofran) 4 mg IV ONETIME ONE Stop: 04/05/19 10:45 Last Admin: 04/05/19 10:53 Dose: 4 mg Oxycodone HCl (Oxycontin) 100 mg PO Q12H [facility] Last Admin: 04/05/19 17:36 Dose: Not Given Oxycodone HCl (Oxycontin) 100 mg PO Q12H [facility] Last Admin: 04/06/19 00:28 Dose: Not Given Oxycodone HCl (Oxycontin) 20 mg PO Q12H [facility] Last Admin: 04/05/19 23:14 Dose: 20 mg Pantoprazole Sodium (Protonix) 40 mg PO ONETIME ONE Stop: 04/05/19 22:16 Last Admin: 04/05/19 23:19 Dose: 40 mg Sodium Chloride (Saline Flush) 10 ml FLUSH ASDIRECTED PRN PRN Reason: Keep Vein Open - Exam General: Alert, Oriented HEENT: Pupils Equal Neck: Supple Lungs: Clear to Auscultation Cardiovascular: Regular Rate, Regular Rhythm GI/Abdominal Exam: Normal Bowel Sounds, Soft, Non-Tender Extremities: Other (right knee swelling, tenderness) Neurological: No New Focal Deficit - Problem List Review Problem List Initiated/Reviewed/Updated: Yes - My Orders Last 24 Hours: My Active Orders 04/07/19 10:58 Communication Order [RC] PER UNIT ROUTINE 04/08/19 09:50 Knee 3V Rt [CR] Routine 04/08/19 10:22 Lactulose [Cephulac] 20 gm PO ONETIME ONE 04/08/19 10:30 Docusate Sodium/Sennosides [Senna Plus] 2 tab PO DAILY Polyethylene Glycol 3350 [MiraLAX] 17 gm PO DAILY - Plan Plan:: Metastatic urothelial carcinoma with intractable right femoral pain -pain management. we increased oxycontin to 120 mg bid -PT/OT today with anticipatory pain therapy before the session Right knee pain, swelling -check right knee xray -pain mgt Hx of Atrial fibrillation -Rate control: continue cardizem -Anticoagulation: no ac due to severe thrombocytopenia Hx of asthma -stable, no SOB -PRN duonebs -continue montelukast DVT ppx SCDs PT/OT No chemoprophylaxis due to thrombocytopenia
[2019-04-08] MEDS: Polyethylene Glycol 3350 Powder 17 GM Packet PO SCH (11:39)
[2019-04-08] MEDS: Montelukast 10 MG Tab PO SCH (21:02)
[2019-04-08] MEDS: Lidocaine 5% 700 MG Patch TOP SCH (21:08)
[2019-04-08] MEDS: Sodium Chloride 0.9% 10 ML Syringe FLUSH PRN ×2 (21:14→22:11)
[2019-04-08] MEDS: Ondansetron 4 MG/2 ML SDV IV PRN (22:12)
[2019-04-09] MEDS: Cyclobenzaprine 5 MG Tab PO PRN ×3 (03:13→19:44)
[2019-04-09] MEDS: Hydrochlorothiazide 25 MG Tab PO SCH (09:06)
[2019-04-09] MEDS: Aspirin 81 MG Tab.EC PO SCH (09:07)
[2019-04-09] MEDS: metFORMIN 500 MG Tab PO SCH ×2 (09:07→18:43)
[2019-04-09] MEDS: Vitamin B6-pyridOXINE 100 MG Tab PO SCH (09:08)
[2019-04-09] MEDS: Metoprolol Tartrate 50 MG Tab PO SCH ×2 (09:08→21:00)
[2019-04-09] MEDS: Diltiazem 180 MG Cap.CD PO SCH (09:08)
[2019-04-09] MEDS: Pantoprazole 40 MG Tab.CR PO SCH ×2 (09:08→21:01)
[2019-04-09] MEDS: Folic Acid 1 MG Tab PO SCH (09:08)
[2019-04-09] MEDS: oxyCODONE ER 20 MG TAB.ER PO SCH ×2 (09:09→21:47)
[2019-04-09] MEDS: Polyethylene Glycol 3350 Powder 17 GM Packet PO SCH (09:10)
[2019-04-09] MEDS: Remove Patch LIDOCAINE TRDERM SCH (09:11)
[2019-04-09] MEDS: Acetaminophen 325 MG Tab PO PRN (16:22)
[2019-04-09] MEDS: Montelukast 10 MG Tab PO SCH (21:01)
[2019-04-09] MEDS: Lidocaine 5% 700 MG Patch TOP SCH (21:01)
[2019-04-09] MEDS: Dexamethasone 2 MG Tab PO SCH (21:04)
--- NOTE | 2019-04-09 23:58 | PN ---
DATE: 04/09/2019 HISTORY OF PRESENT ILLNESS: Mr. Garaz is a 68-year-old gentleman with metastatic renal cancer. The disease is metastatic to right femoral bone, the lungs, pelvis, and spine. He has had radiation and chemotherapy. He was admitted for uncontrolled pain. On admission, he had been taking 100 mg twice a day OxyContin and that was raised by the admitting hospitalist to 120 mg twice a day. He also receives Dilaudid 8 mg every 3 hours p.r.n. He is feeling somewhat better, although continues to have significant pain when he is moved or turned. We discussed making some modifications. We are going to try giving him the OxyContin every 8 hours. He is on a total of 240 mg daily. We will give him 100 mg every 8 hours for a total of 300 mg daily and will continue the p.r.n. Dilaudid. Hopefully by spacing this out, he may be able to reduce the need for p.r.n. meds. We also started him on dexamethasone 2 mg b.i.d. by mouth. Dexamethasone often helps with acute metastatic bone pain. The patient and his were in agreement with this. Mr. Garza had a dressing over the sacral area covering what appears to be an unstageable pressure wound in the upper cleft of the buttock. There was some drainage on the dressing. Orders were written for this to be washed daily with normal saline, covered with a dry dressing, and orders are to reposition him every 2 hours while awake to offload the area. We explained to him and his the importance of offloading to relieve pressure to the area to allow for healing. This may be difficult for him given the significant amount of pain he has with any turning and movement. Otherwise, he seems to be doing somewhat better. Review of his clinical data shows that he has a fair appetite. He is tolerating his diet. He is taking in fluids. He is voiding and moving his bowels. We stressed the importance of not becoming constipated and he does have a bowel regimen which consists of MiraLAX, senna S, and milk of magnesia. We suggested that he keep Dulcolax suppositories at home, and we also discussed the pros and cons of using lactulose. His vital signs have been stable since admission. He remains afebrile. PHYSICAL EXAMINATION: General: He is lying in his room. His and children are present. He is pleasant gentleman who at times has significant pain during the exam, particularly with movement. Vital Signs: Blood pressure 112/64, pulse is 74, respiratory rate 20, oxygen saturation 95% on room air. He is afebrile. HEENT: Unremarkable. Chest: Showed clear bilateral breath sounds. Heart: Showed regular rate and rhythm. Abdomen: Benign. Examination the buttocks as above. We will try the above adjustments in his pain meds. Hopefully, this will bring about some improvement. He is working with OT, PT. Family feels that they are doing well at home with equipment. They have no stairs. He is following with Palliative Medicine and has his next telemedicine appointment on Saturday. If the new changes in his medication dose and schedule are helpful, they can discuss continuing this with palliative care provider. Thank you. [facility] /[id number] MTDD
[2019-04-10] MEDS: Cyclobenzaprine 5 MG Tab PO PRN (04:07)
[2019-04-10] MEDS: oxyCODONE ER 20 MG TAB.ER PO SCH ×3 (06:05→22:03)
[2019-04-10] MEDS: Hydrochlorothiazide 25 MG Tab PO SCH (08:37)
[2019-04-10] MEDS: Aspirin 81 MG Tab.EC PO SCH (08:37)
[2019-04-10] MEDS: Metoprolol Tartrate 50 MG Tab PO SCH ×2 (08:38→20:28)
[2019-04-10] MEDS: metFORMIN 500 MG Tab PO SCH ×2 (08:39→17:30)
[2019-04-10] MEDS: Diltiazem 180 MG Cap.CD PO SCH (08:39)
[2019-04-10] MEDS: Folic Acid 1 MG Tab PO SCH (08:40)
[2019-04-10] MEDS: Pantoprazole 40 MG Tab.CR PO SCH ×2 (08:40→20:27)
[2019-04-10] MEDS: Vitamin B6-pyridOXINE 100 MG Tab PO SCH (08:40)
[2019-04-10] MEDS: Dexamethasone 2 MG Tab PO SCH ×2 (08:41→20:27)
[2019-04-10] MEDS: Polyethylene Glycol 3350 Powder 17 GM Packet PO SCH (08:41)
[2019-04-10] MEDS: Lidocaine 5% 700 MG Patch TOP SCH (08:52)
--- NOTE | 2019-04-10 11:30 | PN ---
DATE: 04/10/2019 SUBJECTIVE: The patient is a 68-year-old gentleman with metastatic urothelial cancer with metastasis to the bones and lungs, who was admitted because of intractable/exacerbation of the right thigh pain. Last night, the patient's OxyContin was increased from 120 b.i.d. to 100 mg q.8 hours and dexamethasone was also started. The patient mentioned that it seems to be helping him and the pain is a little bit better controlled this morning. The patient denies any chest pain, shortness of breath, abdominal pain, nor any other complaints. OBJECTIVE: Vital Signs: Blood pressure is 113/66, pulse of 80, respiration of 20. Heart: Regular rate and rhythm. Normal S1 and S2. No gallops. No rubs. Lungs: Equal bilaterally. No crackles. No wheezing. Abdomen: Soft, nontender. Extremities: An examination of the right hip is remarkable for the lidocaine patch, but the lateral aspect of the right hip is less femoris compared to before. MEDICATIONS: Reviewed. PLAN: We will continue with his present management and if he continues to do well, anticipate discharge in a.m. [facility] /[id number]
[2019-04-10] MEDS: [UNRECOGNIZED DRUG - REMARK] PO SCH ×2 (14:42→22:02)
[2019-04-10] MEDS: Acetaminophen 325 MG Tab PO PRN (16:15)
[2019-04-10] MEDS: Ondansetron 4 MG/2 ML SDV IV PRN (17:35)
[2019-04-10] MEDS: Sodium Chloride 0.9% 10 ML Syringe FLUSH PRN (17:36)
[2019-04-10] MEDS: Montelukast 10 MG Tab PO SCH (20:27)
[2019-04-10] MEDS ORDERED: Remove Patch LIDOCAINE TRDERM SCH (21:00)
[2019-04-11] MEDS: oxyCODONE ER 20 MG TAB.ER PO SCH (05:39)
[2019-04-11] MEDS: [UNRECOGNIZED DRUG - REMARK] PO SCH (05:40)
[2019-04-11 06:38] LABS: ANION GAP 18.2; CHLORIDE,CL 88 mmol/L (101-111); SODIUM,NA 126 mmol/L (135-145)
--- NOTE | 2019-04-11 08:16 | PN ---
DATE: 04/11/2019 SUBJECTIVE: The patient had a good night sleep, and he is doing much better, and the pain on his right hip is much better controlled with his current regimen. He is ready to go home. The patient denies any other ongoing complaints. No chest pain, shortness of breath, abdominal pain, nausea or vomiting. OBJECTIVE: Vital Signs: Blood pressure is 107/86, pulse 78, respiration of 18, and saturation is 99% on room air. Heart: Regular rate and rhythm. Normal S1 and S2. No gallops. No rubs. Lungs: Equal bilaterally. No crackles, no wheezing. Abdomen: Soft, nontender. Extremities: Negative for any calf tenderness. PLAN: We will discharge the patient home today, and condition on discharge improved, and he is going to follow up with Stephanie Lerma in 7 to 10 days. [facility] /[id number]
[2019-04-11] MEDS: Polyethylene Glycol 3350 Powder 17 GM Packet PO SCH (08:18)
[2019-04-11] MEDS: metFORMIN 500 MG Tab PO SCH (08:19)
[2019-04-11] MEDS: Diltiazem 180 MG Cap.CD PO SCH (08:19)
[2019-04-11] MEDS: Metoprolol Tartrate 50 MG Tab PO SCH (08:21)
[2019-04-11] MEDS: Hydrochlorothiazide 25 MG Tab PO SCH (08:21)
[2019-04-11] MEDS: Vitamin B6-pyridOXINE 100 MG Tab PO SCH (08:22)
[2019-04-11] MEDS: Folic Acid 1 MG Tab PO SCH (08:23)
[2019-04-11] MEDS: Dexamethasone 2 MG Tab PO SCH (08:23)
[2019-04-11 08:24] VITALS: PULSE 71
[2019-04-11] MEDS: Pantoprazole 40 MG Tab.CR PO SCH (08:24)
[2019-04-11] MEDS: Aspirin 81 MG Tab.EC PO SCH (08:24)
--- NOTE | 2019-04-11 08:25 | DISCH ---
FINAL DIAGNOSES: 1. Intractable right hip pain secondary to metastatic urothelial carcinoma. 2. History of atrial fibrillation. 3. History of asthma. BRIEF HISTORY OF PRESENT ILLNESS: Please see H and P. PERTINENT LAB, X-RAY, AND OTHER TESTS: X-ray of the right knee is negative for any fracture, and x-ray of the pelvis shows some sclerosis on the right acetabulum suggesting metastatic focus, otherwise no fractures noted. HOSPITAL COURSE: The patient was admitted to General Medicine floor for pain management. The patient's OxyContin was increased to 100 mg every 8 hours, and he was continued on Dilaudid for breakthrough pain. The patient also was started on dexamethasone 2 mg p.o. b.i.d. The patient did well with the above adjustment of the medication, and he felt much better and felt that he is ready to go home. CONDITION ON DISCHARGE: Improved. DISCHARGE INSTRUCTIONS: We will resume his current regimen, and I will have him follow up with Stephanie Lerma in 7 to 10 days. [facility] /[id number]
[2019-04-11 08:34] VITALS: BP 116/72
[2019-04-11] MEDS: Lidocaine 5% 700 MG Patch TOP SCH (10:05)
[2019-04-11] MEDS: Sodium Chloride 0.9% 10 ML Syringe FLUSH PRN (10:10)
== END 2019-04-11 11:10 | disposition home or self-care (01) | DRG 948 ==
LOC: DL.ED 09:52 → UNDOADMOB 13:10 → DL.MS 13:10 → OBSVTOIN 04-06 09:22
PROVIDERS: ADMIT Hospitalist; ATTEND Internal Medicine
DX: G89.3 Neoplasm related pain (acute) (chronic) (principal); C67.9 Malignant neoplasm of bladder, unspecified; C78.00 Secondary malignant neoplasm of unspecified lung; C79.51 Secondary malignant neoplasm of bone; Z66 Do not resuscitate; Z51.5 Encounter for palliative care; I48.91 Unspecified atrial fibrillation; J45.909 Unspecified asthma, uncomplicated; D69.6 Thrombocytopenia, unspecified; H54.7 Unspecified visual loss; Z86.718 Personal history of other venous thrombosis and embolism; I10 Essential (primary) hypertension; E78.00 Pure hypercholesterolemia, unspecified; K21.9 Gastro-esophageal reflux disease without esophagitis; K59.09 Other constipation; E11.42 Type 2 diabetes mellitus with diabetic polyneuropathy; E66.9 Obesity, unspecified; Z79.52 Long term (current) use of systemic steroids; Z88.8 Allergy status to other drugs, medicaments and biological substances; M10.9 Gout, unspecified; Z85.89 Personal history of malignant neoplasm of other organs and systems; Z79.82 Long term (current) use of aspirin; Z88.1 Allergy status to other antibiotic agents; Z79.84 Long term (current) use of oral hypoglycemic drugs; Z68.27 Body mass index [BMI] 27.0-27.9, adult; Z85.118 Personal history of other malignant neoplasm of bronchus and lung; Z85.830 Personal history of malignant neoplasm of bone; Z92.3 Personal history of irradiation
CPT/HCPCS: 73502; 73552; 82962; 96374; 96375; 96376; 99283; A9270 ×13; J2270 ×8; J2405 ×2; 36415; 73560-RT; 80048; 85025; 85027; 97166-GO; 97530-GO; 99284; G0378; J1642; J8540